=== PATIENT | female | born 1980 | race Caucasian/White ===

== ENCOUNTER 2017-12-20 11:01 | Inpatient (IN) | payer OTHER ==
--- NOTE | 2017-12-20 13:21 | ED ---
Chest Pain HPI - General Chief Complaint: Chest Pain Stated Complaint: chest pain, 20 weeks Time Seen by Provider: 12/20/17 13:02 Source: patient Mode of arrival: wheelchair Limitations: no limitations - History of Present Illness Initial Comments: 37 yoF 20 weeks presenting with chest left sided sharp nonradiating chest pain that began last night while at rest. Patient states it lasted for a few minutes and resolved when she held pressure over the area. Today the pain returned while she was at work and was accompanied by shortness of breath. Patient states she called her OBGYN, Dr. Briggs, who instructed her to come to the ED. Patient denies any personal or family history of DVT/PE, recent leg swelling or pain, or personal/family history of ND. Denies any trauma , cough, or shortness of breath. Patient's complaining of scant vaginal bleeding today. She states that her and her had sexual intercourse yesterday. Nicolas any abdominal pain. - Related Data Home Medications Medication Instructions Recorded Confirmed Pantoprazole Sodium [Protonix] 80 mg PO DAILY 12/20/17 12/20/17 Pas-Nrwf-Htxrc Acid 1 cap PO DAILY 12/20/17 12/20/17 [-U Capsule (formulary)] Allergies Allergy/AdvReac Type Severity Reaction Status Date / Time aspirin Allergy Unknown Verified 12/20/17 13:47 Review of Systems ROS Statement: Those systems with pertinent positive or pertinent negative responses have been documented in the HPI. Review of Systems Constitutional: Denies fever, chills Eyes: Denies change in vision, Denies pain Ears, nose, mouth, throat: Denies headaches, Denies sore throat Cardiovascular: Admits to chest pain. Denies palpitations Respiratory: Admits to shortness of breath, Denies cough Gastrointestinal: Denies abdominal pain. Denies nausea, vomiting, diarrhea. Genitourinary: Denies hematuria, Denies infections. Scant vaginal bleeding Musculoskeletal: Denies pain, Denies swelling Integumentary: Denies rash Neurological: Denies headache, focal weakness, focal numbness Psychiatric: Denies anxiety, Denies depression Hematologic/Lymphatic: Denies easy bleeding or bruising ROS Other: All systems not noted in ROS Statement are negative. EKG Findings - EKG Comments: EKG Findings:: EKG shows normal sinus rhythm at a rate of 96 bpm. No S1, Q3, T3 seen. Past Medical History Past Medical History: No Reported History History of Any Multi-Drug Resistant Organisms: None Reported Past Surgical History: Section, Tonsillectomy Past Psychological History: Depression Smoking Status: Current every day smoker Past Alcohol Use History: None Reported Past Drug Use History: None Reported General Exam - General Exam Comments Initial Comments: General: Awake, alert, No acute Distress HENT: Normocephalic. Atraumatic Eyes: PERRL. EOMI. No scleral icterus. No injected conjunctiva Neck: Full ROM Chest/Lungs: Clear to auscultation bilaterally. No wheezing, rhonchi, or rales Cardiac: Regular rate, rhythm. No murmurs or rubs Abdomen/GI: [Soft, nontender, nondistended. No rebound, guarding, or rigidity. Musculoskeletal: Full ROM Skin: Warm, dry, intact Neurologic: A/Ox3, no weakness, no sensory deficit, no abdnormal gait, no coordination deficit Limitations: no limitations Course Vital Signs 12/20/17 12/20/17 12/20/17 11:04 13:24 16:07 Temperature 97.6 F Pulse Rate 96 85 89 Respiratory 18 16 16 Rate Blood Pressure 142/64 123/68 117/53 O2 Sat by Pulse 98 99 97 Oximetry 12/20/17 12/20/17 12/20/17 18:45 19:13 19:26 Temperature Pulse Rate 105 H 97 Respiratory 16 18 18 Rate Blood Pressure 153/77 137/67 O2 Sat by Pulse 99 99 Oximetry Chest Pain MDM - MDM 37 yoF female presenting with chest pain and shortness of breath that began last night. Initial exam the patient is awake, alert, no acute distress. Patient is mildly hypertensive. EKG shows normal sinus rhythm. Patient is not hypoxic. [address] Martins who recommends CTP. 1552 Patient's US was negative. Her CTPE was nondiagostic. Discussed with Dr. Martins who recommends a d-dimer. If that is elevated he recommends admission for our suspicion is high. Discussed with patient and who are agreeable to plan. Patient's dimer was elevated. Spoke with Dr. Ortiz who was agreeable to admission with consults to Dr. Martins and Dr. Juarez. He would also like BLE duplex orders placed. Patient is currently stable for transfer to the floor. Disposition Clinical Impression: Chest pain, Pulmonary embolism Disposition: ADMITTED IP TO THIS HOSP Referrals: None,Stated [REFERRING] - 1-2 days Decision to Admit Reason: Admit from EC
[2017-12-20 13:42] LABS: Basophils % (A) 0 %; Eosinophils # (A) 0.3 k/uL (0-0.7); Eosinophils % (A) 3 %; HCT 40.1 % (34.0-46.0); HGB 12.9 gm/dL (11.4-16.0); Lymphocytes # (A) 1.7 k/uL (1.0-4.8); Lymphocytes % (A) 19 %; MCH 27.4 pg (25.0-35.0); MCHC 32.3 g/dL (31.0-37.0); Mean Platelet Volume 8.2; Monocytes # (A) 0.5 k/uL (0-1.0); Monocytes % (A) 5 %; Neutrophils # (A) 6.2 k/uL (1.3-7.7); Neutrophils % (A) 71 %; Platelet Count 147 k/uL (150-450); RBC 4.72 m/uL (3.80-5.40); RDW 14.5 % (11.5-15.5); WBC 8.8 k/uL (3.8-10.6)
[2017-12-20 13:43] LABS: Appearance,Urine Clear (Clear); Bilirubin,Urine Negative (Negative); Blood,Urine Negative (Negative); Color,Urine Yellow; Glucose,Urine (UA) Negative (Negative); Ketones,Urine 1+ (Negative); Leukocyte Esterase,Urine Negative (Negative); Nitrite,Urine Negative (Negative); PH, Urine 5.5 (5.0-8.0); Protein,Urine Negative (Negative); Specific Gravity,Urine 1.021 (1.001-1.035); Urobilinogen,Urine <2.0 mg/dL (<2.0)
--- NOTE | 2017-12-20 13:57 | XR ---
EXAMINATION TYPE: XR chest 2V DATE OF EXAM: 12/20/2017 COMPARISON: NONE HISTORY: Chest pain for one day. TECHNIQUE: Frontal and lateral views of the chest are obtained. FINDINGS: There is no focal air space opacity, pleural effusion, or pneumothorax seen. The cardiac silhouette size is within normal limits. The osseous structures are intact. IMPRESSION: No acute cardiopulmonary process.
[2017-12-20 14:01] LABS: ALT 25 U/L (9-52); AST 18 U/L (14-36); Albumin 3.5 g/dL (3.5-5.0); Alkaline Phosphatase 48 U/L (38-126); Anion Gap 9 mmol/L; Bilirubin, Delta 0.2 mg/dL (0.0-0.2); Blood Urea Nitrogen 10 mg/dL (7-17); Carbon Dioxide 20 mmol/L (22-30); Chloride 109 mmol/L (98-107); Glucose 62 mg/dL (74-99); Sodium 138 mmol/L (137-145); Total Bilirubin 0.2 mg/dL (0.2-1.3); Total Protein 6.4 g/dL (6.3-8.2)
[2017-12-20] MEDS ORDERED: RX INFO: IV CONTRAST WAS GIVEN 1 EACH MISC MISCELLANE PRN (14:04)
--- NOTE | 2017-12-20 15:10 | US ---
EXAMINATION TYPE: US OB >= 14 wk fetus DATE OF EXAM: 12/20/2017 COMPARISON: None CLINICAL HISTORY: vaginal bleeding Chest pain, diabetes TECHNIQUE: Transabdominal (TA) GESTATIONAL AGE / DATING Physician Established: (20 weeks/5 days) EDC: 05/04/2018 Dates by Current Scan: (20 weeks/4 days) EDC: 05/05/2018 SURVEY IUP: Single PLACENTA: Anterior PREVIA: No Previa GIN: 16.8 cm Normal CERVICAL LENGTH (transabdominal: norm > 3.0cm): 3.5 cm BIOMETRY PRESENTATION: Breech LIE: Longitudinal BPD: 5.1 cm 21 weeks / 3 days HC: 18.3 cm 20 weeks / 5 days AC: 15.8 cm 20 weeks / 6 days FL: 3.3 cm 20 weeks / 2 days ESTIMATED WEIGHT IN GRAMS: 368.4 grams ESTIMATED WEIGHT IN LBS/OZ: 0 lbs. 13 oz. WEIGHT PERCENTAGE BASED ON ESTABLISHED DATES: 41.7% HC/AC: 1.2 Normal FL/AC: 20.8 HEART RATE: 136 bpm RHYTHM: Normal Signal live intrauterine gestation is present. A breech presentation to fetus is currently seen. Ther e is no ultrasound evidence for placenta previa. Amniotic fluid index is upper limits of normal. No c ervical thinning is seen. biometry measurements are congruent and felt within normal limits. IMPRESSION: As above, no ultrasound evidence for complication.
--- NOTE | 2017-12-20 15:25 | CT ---
EXAMINATION TYPE: CT chest angio for PE DATE OF EXAM: 12/20/2017 COMPARISON: NONE HISTORY: RIGHT SIDE CHEST PAIN AND SOB CT DLP: 378.2 mGycm Automated exposure control for dose reduction was used. CONTRAST: CT Chest for pulmonary embolism performed with with IV Contrast, patient injected with 77 mL of Isovu e 370. FINDINGS: LUNGS: Calcified granuloma in the right upper lobe. Additional 5 mm nodule posterior right lung pleur al-based. Subsegmental groundglass changes post fairly likely related to dependent atelectasis. Right upper lobe 2 mm pleural-based nodule axial image 81. MEDIASTINUM: There is unsatisfactory and suboptimal enhancement pulmonary arteries. No obvious centra l pulmonary embolus. Remaining portion exam nondiagnostic. Aorta of normal caliber. Motion artifact l imits assessment of the aortic root. A trace of pericardial fluid noted. OTHER: There is adrenal thickening on the left correlate for adrenal hyperplasia. Spleen is heteroge neous in appearance likely related to the phase of imaging. IMPRESSION: Nondiagnostic assessment for pulmonary embolism. Grossly no sizable embolism within the right or left main pulmonary artery. Multiple less than 5 mm pulmonary nodules. One of which appears calcified. Short-term follow-up 6 mon th follow-up CT scan recommended to confirm stability. Subsegmental changes involving the posterior lung bases may been the basis of atelectasis eli hinojosa.
[2017-12-20] MEDS ORDERED: HEPARIN SODIUM,PORCINE 10,000 UNIT/ML 1 ML VIAL IV ONE (16:53)
[2017-12-20] MEDS ORDERED: NALOXONE 0.4 MG/ML 1 ML VIAL IV PRN (16:59)
[2017-12-20] MEDS: HEPARIN SOD,PORK IN 0.45% NACL 25,000 UNIT in 0.45% NACL 1 500ML.BAG IV SCH (17:43)
[2017-12-20 17:59] LABS: Partial Thromboplastin Time 23.7 sec (22.0-30.0); Prothrombin Time 9.6 sec (9.0-12.0)
--- NOTE | 2017-12-20 18:38 | US ---
EXAMINATION TYPE: US venous doppler duplex LE BI DATE OF EXAM: 12/20/2017 6:27 PM COMPARISON: NONE CLINICAL HISTORY: Pain. SIDE PERFORMED: Bilateral TECHNIQUE: The lower extremity deep venous system is examined utilizing real time linear array sonog elías with graded compression, doppler sonography and color-flow sonography. VESSELS IMAGED: External Iliac Vein (EIV) Common Femoral Vein Deep Femoral Vein Greater Saphenous Vein * Femoral Vein Popliteal Vein Small Saphenous Vein *not seen on left Proximal Calf Veins (* superficial vessels) Right Leg: Negative for DVT Left Leg: Negative for DVT IMPRESSION: Negative bilateral leg duplex venous sonogram.
[2017-12-20] MEDS ORDERED: ACETAMINOPHEN TAB 500 MG TAB PO STA (19:28)
[2017-12-20] MEDS ORDERED: NICOTINE 7MG/24HR PATCH TRANSDERM SCH (23:00)
--- NOTE | 2017-12-21 00:02 | HP ---
HISTORY AND PHYSICAL PRESENTING COMPLAINT: Right chest pain. HISTORY OF PRESENTING COMPLAINT: This is a 37-year-old patient who follows with Dr. Price. The patient is 21 weeks with the her third child. Started off with the right chest pain, which is sharp in nature, maybe slightly worse if she takes a deep breath. There is no swelling in the legs. The patient is rather active. 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 The patient is not really short of breath as much as the pain. The patient is started on IV heparin in the ER. She did have a CT scan of the chest that was not conclusive. The patient's food broker is Dr. Levine. No prior history of blood clots. REVIEW OF SYSTEMS: CONSTITUTIONAL: None. HEENT: Slight runny nose. RESPIRATORY: As above. Slight cough. CARDIOVASCULAR: Left precordial pain. GASTROINTESTINAL: Some heartburn. GENITOURINARY: None. MUSCULOSKELETAL: Some reproducible pain on the right chest wall. DERMATOLOGICAL: None. HEMATOLOGIC: None. LYMPHATIC: None. PSYCHIATRY: None. NEUROLOGICAL: None. PAST MEDICAL HISTORY: GERD, sleep apnea, gestational diabetes, left ovarian cyst. PAST SURGICAL HISTORY: , tonsillectomy. SOCIAL HISTORY: The patient has been smoking for about 21 years normally a pack and half a day. When she found out about her she is down to 5 cigarettes a day. Denies alcohol or recreational drugs. The patient works at a recycling plant. with 2 children at home. FAMILY HISTORY: COPD, hyperlipidemia, osteoporosis. HOME MEDICATIONS: capsule 1 capsule daily and Protonix 80 mg p.o. daily. ALLERGIES: ASPIRIN. PHYSICAL EXAMINATION: VITAL SIGNS ON PRESENTATION: Temperature 97.6, pulse 96, respiratory 18, blood pressure 142/64, pulse ox 98% on room. GENERAL APPEARANCE: Well-built, BMI 32.3. Lying in bed, tired appearing. EYES: Pupils equal. Conjunctivae normal. HEENT: External appearance of nose and ears normal. Oral cavity normal. NECK: JVD not raised. Mass not palpable. RESPIRATORY: Effort normal. LUNGS: Fair air entry. CARDIOVASCULAR: First and second sounds normal. No edema. ABDOMEN: Distended. Uterus is palpable. Liver and spleen not palpable. LYMPHATIC: No lymph node palpable in neck or axillae. PSYCHIATRY: Alert and oriented x3. Mood and affect slightly anxious-appearing. NEUROLOGICAL: Pupils equal. Cranial nerves grossly intact. Power and sensation grossly intact. LOWER EXTREMITIES: No swelling noted in the lower extremities. Equal on both sides. MUSCULOSKELETAL: The patient has got reproducible pain on the right chest wall at the costochondral junction. INVESTIGATIONS: White count 8.8, hemoglobin 12.9, potassium 4, BUN 10, creatinine 0.44. D-dimer 0.6. ultrasound single intrauterine gestation with breech presentation. Chest CTA no obvious PE. Venous Doppler both lower extremities negative. ASSESSMENT: 1. Acute right-sided pleuritic chest pain of less than one day duration, reproducible pain at the right costochondral junction. Other differential could be viral pleurisy, pleural effusion of course cannot be ruled out. The patient is put on IV heparin. Pulmonary was consulted. Dopplers of the lower extremities is negative. 2. Chronic nicotine dependence. The patient is a cigarette smoker. 3. IV heparin monitoring. PLAN: We will keep the patient on IV heparin, get a pulmonary opinion. The patient will get a nicotine patch. Consultation also with Dr. Levine from obstetrics was done. CBC will be repeated. Smoking cessation counseling was done with the patient. I told her that this will affect her . We will give a nicotine patch. More than 3 minutes was spent on smoking cessation counseling. MMODL / IJN: [id number] /
[2017-12-21 07:09] LABS: Basophils % (A) 1 %; Eosinophils # (A) 0.2 k/uL (0-0.7); Eosinophils % (A) 3 %; HCT 37.3 % (34.0-46.0); HGB 12.6 gm/dL (11.4-16.0); Lymphocytes # (A) 1.5 k/uL (1.0-4.8); Lymphocytes % (A) 23 %; MCH 28.6 pg (25.0-35.0); MCHC 33.9 g/dL (31.0-37.0); MCV 84.3 fL (80.0-100.0); Mean Platelet Volume 7.9; Monocytes # (A) 0.4 k/uL (0-1.0); Monocytes % (A) 6 %; Neutrophils # (A) 4.3 k/uL (1.3-7.7); Neutrophils % (A) 66 %; Platelet Count 151 k/uL (150-450); RBC 4.42 m/uL (3.80-5.40); RDW 14.3 % (11.5-15.5); WBC 6.6 k/uL (3.8-10.6)
[2017-12-21 07:47] LABS: Anion Gap 9 mmol/L; Blood Urea Nitrogen 8 mg/dL (7-17); Calcium 8.5 mg/dL (8.4-10.2); Carbon Dioxide 21 mmol/L (22-30); Chloride 108 mmol/L (98-107); Glucose 82 mg/dL (74-99); Potassium 3.9 mmol/L (3.5-5.1); Sodium 138 mmol/L (137-145)
--- NOTE | 2017-12-21 08:53 | P.OBCN ---
History of Present Illness Consult date: 12/21/17 Requesting physician: Jude Ortiz Reason for consult: early problem Chief complaint: February at 20 weeks: Suspected pulmonary embolus History of present illness: Gerri is a 37-year-old female who is currently 20 weeks gestation. She reports that yesterday she began having sharp stabbing pain in her anterior chest after the initial presentation it began to feel more like something is sitting on her chest. It was only on the right side at approximately the fifth or sixth rib level and was relatively contained to that area. She was evaluated in the emergency room and I did discuss care with Dr. Donovan for recommendations on diagnosis of PE. At that time but this discussion was held and decision to use spiral CT was made to rule out a PE. Symptomatically she was not short of breath and did not have any significant dyspnea. She was pulse oxing well and was not tachycardic. EKG was also normal. The spiral CT however was nondiagnostic. Furthermore after discussion with your doctor a d- dimer was done which returned at 0.6. This value in absolute terms is slightly elevated, however, with particularly in the second trimester we would normally expect some increase in the d-dimer. 0.6 would be well within what I would normally consider to be normal by for a d-dimer in a woman. Gerri and I had a very long discussion on what a pulmonary embolism is how it is formed and widely the risks of PE are increased in . We further discuss her blood sugar issues as she is either a type II diabetic or she has early onset gestational diabetes for which insulin was initiated but she has not started as her blood sugars at home have been normal. She has been seen by and evaluated by maternal- medicine and ultimately if the decision is made that we think this is a pulmonary and was more cannot completely rule it out we would have MFM give further opinions on long-term care in the situation. I fully agree and support the decision to start her on IV heparin based on symptomatology, however it would be beneficial to her to verify the diagnosis if at all possible. Certainly a VQ scan might give a better impression should it be required. Realistically, a VQ scan is going to be slightly more effective at determining a PE in , this obviously assume she is able to take deep breaths and give full diaphragmatic support her breathing slit the VQ scan can be done. In talking to her I think that that certainly is a good option rather than repeating the spiral CT. Would certainly defer any decisions on this to pulmonology, ordinarily a spiral CT has been better in my experience due to the decrease in a woman's ability to take deep breaths, however with Gerri only being 20 weeks gestation she should have limited problems with that process. She is a smoker and has been advised to discontinue tobacco on several occasions. However, a nicotine patches contraindicated in . We will also initiate Accu-Cheks every before meals and at bedtime. On physical exam vital signs are stable and afebrile. Heart regular lungs are essentially clear and abdomen is soft with gravid uterus noted. Extremities are without pain and do not show any signs of swelling or any evidence of DVT. A Doppler of the lower extremities was also done and was negative. Assessment intrauterine 20 weeks with possible PE. Plan await pulmonology recommendations and your medical management with regard to the PE. Consideration for VQ scan for repeat spiral CT. Should PE continued to be impossible to rule out, would recommend changing to Lovenox or other daily anticoagulant with plan to switch to subcu heparin at approximately 35-36 weeks so that she can have a section that will be planned for 39 weeks. All other questions were answered for Gerri at this time and I will plan to come back and see her later today once other evaluations and recommendations are made. Past Medical History Past Medical History: GERD/Reflux, Sleep Apnea/CPAP/BIPAP Additional Past Medical History / Comment(s): GESTATIONAL DIABETES WITH ALL 3 PREGNANCIES(CURRENTLY 20 WEEKS ), CONSTIPATION, PAST LT OVARIAN CYST History of Any Multi-Drug Resistant Organisms: None Reported Past Surgical History: Section, Tonsillectomy Additional Past Surgical History / Comment(s): X2 C-SECTIONS Past Anesthesia/Blood Transfusion Reactions: No Reported Reaction Additional Past Anesthesia/Blood Transfusion Reaction / Comm: AGE 16 HAD BLOOD TRANSFUSION D/T BLEEDING DURING TONSILECTOMY Smoking Status: Current every day smoker - Past Family History Father History Unknown: Yes Mother Family Medical History: COPD, Hyperlipidemia Additional Family Medical History / Comment(s): ENPHYSEMA, OSTEOPOROSIS Medications and Allergies Home Medications Medication Instructions Recorded Confirmed Type Pantoprazole Sodium [Protonix] 80 mg PO DAILY 12/20/17 12/20/17 History Gup-Dffk-Uqbig Acid 1 cap PO DAILY 12/20/17 12/20/17 History [-U Capsule (formulary)] Allergies Allergy/AdvReac Type Severity Reaction Status Date / Time aspirin Allergy Unknown Verified 12/20/17 13:47 Exam Osteopathic Statement: *. No significant issues noted on an osteopathic structural exam other than those noted in the History and Physical/Consult. - Vital Signs Vital signs: Vital Signs Temp Pulse Pulse Resp BP BP Pulse Ox 12/21/17 04:00 97.0 F L 88 14 103/51 96 12/21/17 00:43 96.9 F L 88 16 123/76 98 12/21/17 00:00 98.2 F 75 18 117/57 96 12/20/17 22:31 78 18 114/60 98 12/20/17 20:58 96 18 109/73 98 12/20/17 19:26 97 18 137/67 99 12/20/17 19:13 18 12/20/17 18:45 105 H 16 153/77 99 12/20/17 16:07 89 16 117/53 97 12/20/17 13:24 85 16 123/68 99 12/20/17 11:04 97.6 F 96 18 142/64 98 Intake and Output 12/20/17 12/21/17 12/21/17 22:59 06:59 14:59 Intake Total 161.031 2841 Output Total 800 Balance -533.891 5838 Intake: Intake, IV Titration 267.359 Amount Heparin Sod,Pork in 0.45% 267.359 NaCl 25,000 unit In 0.45 % NaCl 1 500ml.bag @ 18 UNITS/KG/HR 33.63 mls/hr IV .[id number] [facility] Rx#: [id number] Oral 1200 Output: Urine 800 Other: # Voids 1 Weight 93.1 kg Results Result Diagrams: 12/21/17 06:20 12/21/17 06:20 Abnormal Lab Results - Last 24 Hours (Table) 12/20/17 12/20/17 12/20/17 Range/Units 13:31 13:31 13:31 Plt Count 147 L (150-450) k/uL APTT (22.0-30.0) sec D-Dimer (<0.60) mg/L FEU Chloride 109 H (98-107) mmol/L Carbon Dioxide 20 L (22-30) mmol/L Creatinine 0.44 L (0.52-1.04) mg/dL Glucose 62 L (74-99) mg/dL Urine Ketones 1+ H (Negative) 12/20/17 12/21/17 12/21/17 Range/Units 16:00 00:35 06:20 Plt Count (150-450) k/uL APTT 33.9 H (22.0-30.0) sec D-Dimer 0.60 H (<0.60) mg/L FEU Chloride 108 H (98-107) mmol/L Carbon Dioxide 21 L (22-30) mmol/L Creatinine 0.46 L (0.52-1.04) mg/dL Glucose (74-99) mg/dL Urine Ketones (Negative) 12/21/17 Range/Units 06:20 Plt Count (150-450) k/uL APTT 43.4 H (22.0-30.0) sec D-Dimer (<0.60) mg/L FEU Chloride (98-107) mmol/L Carbon Dioxide (22-30) mmol/L Creatinine (0.52-1.04) mg/dL Glucose (74-99) mg/dL Urine Ketones (Negative)
[2017-12-21] MEDS: HEPARIN SOD,PORK IN 0.45% NACL 25,000 UNIT in 0.45% NACL 1 500ML.BAG IV SCH ×2 (09:07→17:26)
[2017-12-21] MEDS: HEPARIN SODIUM,PORCINE 5,000 UNIT/ML 1 ML VIAL IV PRN (09:08)
[2017-12-21] MEDS: PRENATAL VIT-IRON-FOLIC ACID 1 EACH CAP PO SCH (09:09)
[2017-12-21] MEDS: PANTOPRAZOLE 40 MG TABLET PO SCH (09:09)
[2017-12-21 11:50] LABS: Glucose,Whole Blood 79 mg/dL (75-99)
--- NOTE | 2017-12-21 12:34 | P.CNPUL ---
History of Present Illness Consult date: 12/21/17 Reason for consult: pulmonary embolism History of present illness: A 37-year-old here patient was currently in her 20th week of gestation who was admitted to the hospital because of some nonspecific pain across her right anterior chest area that was thought to be initially to be pleuritic in nature. She did claim that the pain was getting worse with breathing however it seems that the pain is also reproducible with touch or movement. For that reason and for the concern of pulmonary embolism the patient was admitted to the hospital and the patient was started on IV heparin. As part of her workup, a d-dimer was done that came back at 0.6 which is low suspicion a setting, .throat approximately was negative, CT angios the chest showed a suboptimal contrast it for the most part the main pulmonary arteries were free of any filling defects. The patient's pain is subsided significantly. She is feeling better. No hypoxemia. No respiratory distress. No personal history of DVT. She has a grandmother who has had clotting in the past. She has had 3 previous pregnancies and these were all non-complicated. She is hemodynamically stable. She has absolutely no other new complaints for now. She is a smoker. She is utilizing nicotine patches. She is also developing gestational diabetes and she is under the care of Dr. Briggs from [facility]. She has history of obstructive sleep apnea. Review of Systems Constitutional: Denies chills, Denies fever Eyes: denies blurred vision, denies bulging eye, denies decreased vision Ears: deny: decreased hearing, ear discharge, earache Ears, nose, mouth and throat: Denies headache, Denies sore throat Cardiovascular: Reports chest pain Respiratory: Denies cough Gastrointestinal: Denies abdominal pain, Denies diarrhea, Denies nausea, Denies vomiting Genitourinary: Denies dysuria, Denies hematuria Menstruation: Reports as per HPI Musculoskeletal: Denies myalgias Musculoskeletal: absent: ankle pain, ankle stiffness, ankle swelling Integumentary: Denies pruritus, Denies rash Neurological: Denies numbness, Denies weakness Psychiatric: Reports as per HPI Endocrine: Denies fatigue, Denies weight change Past Medical History Past Medical History: GERD/Reflux, Sleep Apnea/CPAP/BIPAP Additional Past Medical History / Comment(s): GESTATIONAL DIABETES WITH ALL 3 PREGNANCIES(CURRENTLY 20 WEEKS ), CONSTIPATION, PAST LT OVARIAN CYST History of Any Multi-Drug Resistant Organisms: None Reported Past Surgical History: Section, Tonsillectomy Additional Past Surgical History / Comment(s): X2 C-SECTIONS Past Anesthesia/Blood Transfusion Reactions: No Reported Reaction Additional Past Anesthesia/Blood Transfusion Reaction / Comment(s): AGE 16 HAD BLOOD TRANSFUSION D/T BLEEDING DURING TONSILECTOMY Smoking Status: Current every day smoker - Past Family History Father History Unknown: Yes Mother Family Medical History: COPD, Hyperlipidemia Additional Family Medical History / Comment(s): ENPHYSEMA, OSTEOPOROSIS Medications and Allergies Home Medications Medication Instructions Recorded Confirmed Type Pantoprazole Sodium [Protonix] 80 mg PO DAILY 12/20/17 12/20/17 History Lkj-Msqw-Rmcsj Acid 1 cap PO DAILY 12/20/17 12/20/17 History [-U Capsule (formulary)] Allergies Allergy/AdvReac Type Severity Reaction Status Date / Time aspirin Allergy Unknown Verified 12/20/17 13:47 Physical Exam Vitals: Vital Signs Temp Pulse Pulse Resp BP BP Pulse Ox 12/21/17 11:53 98.1 F 85 18 125/64 95 12/21/17 09:15 97.9 F 86 18 115/54 97 12/21/17 04:00 97.0 F L 88 14 103/51 96 12/21/17 00:43 96.9 F L 88 16 123/76 98 12/21/17 00:00 98.2 F 75 18 117/57 96 12/20/17 22:31 78 18 114/60 98 12/20/17 20:58 96 18 109/73 98 12/20/17 19:26 97 18 137/67 99 12/20/17 19:13 18 12/20/17 18:45 105 H 16 153/77 99 12/20/17 16:07 89 16 117/53 97 12/20/17 13:24 85 16 123/68 99 Intake and Output 12/20/17 12/21/17 12/21/17 22:59 06:59 14:59 Intake Total 276.988 3892.641 Output Total 800 Balance -148.112 6531.641 Intake: Intake, IV Titration 267.359 232.641 Amount Heparin Sod,Pork in 0.45% 267.359 232.641 NaCl 25,000 unit In 0.45 % NaCl 1 500ml.bag @ 18 UNITS/KG/HR 33.63 mls/hr IV .[id number] [facility] Rx#: [id number] Oral 1200 Output: Urine 800 Other: # Voids 1 Weight 93.1 kg The patient appeared well nourished and normally developed. Vital signs as documented. Head exam is unremarkable. No scleral icterus or corneal arcus noted. Neck is without jugular venous distension, thyromegaly, or carotid bruits. Carotid upstrokes are brisk bilaterally. Lungs are clear to auscultation and percussion. Cardiac exam reveals the PMI to be normally sized and situated. Rhythm is regular. First and second heart sounds normal. No murmurs, rubs or gallops. Abdominal exam reveals normal bowel sounds, no masses , no organomegaly and no aortic enlargement. Extremities are nonedematous and both femoral and pedal pulses are normal.Examination of the skin revealed no evidence of significant rashes, suspicious appearing nevi or other concerning lesions. Neurologic the patient is awake and alert and there is no focal neurological deficit. Psychiatric the patient has appropriate mood and affect Results - Laboratory Findings CBC and BMP: 12/21/17 06:20 12/21/17 06:20 PT/INR, D-dimer PT 9.6 sec (9.0-12.0) 12/20/17 16:08 INR 1.0 (<1.2) 12/20/17 16:08 D-Dimer 0.60 mg/L FEU (<0.60) H 12/20/17 16:00 Abnormal lab findings: Abnormal Labs 12/20/17 12/20/17 12/20/17 13:31 13:31 13:31 Plt Count 147 L APTT D-Dimer Chloride 109 H Carbon Dioxide 20 L Creatinine 0.44 L Glucose 62 L Urine Ketones 1+ H 12/20/17 12/21/17 12/21/17 16:00 00:35 06:20 Plt Count APTT 33.9 H D-Dimer 0.60 H Chloride 108 H Carbon Dioxide 21 L Creatinine 0.46 L Glucose Urine Ketones 12/21/17 06:20 Plt Count APTT 43.4 H D-Dimer Chloride Carbon Dioxide Creatinine Glucose Urine Ketones - Diagnostic Findings CT scan - chest: image reviewed Assessment and Plan Plan: Assessment 1 acute right-sided chest pain, pulmonary embolism is doubtful yet is not excluded especially with her suboptimal CT angios the chest. The patient is . Other workup which included a d-dimer and Doppler extremity do not support pulmonary embolism. Clinical suspicion is low. 2 at 20th week of gestation 3 smoker 4 obstructive sleep apnea Plan Had a lengthy discussion with the patient. The patient is still nervous about diagnosis of pulmonary embolism. We decided to repeat a CT angios the chest in the morning and if negative we'll stop the anticoagulation unless the patient go without any anticoagulants. He understands the risks of radiation to the fetus although low but still there. The patient is currently passed her first trimester. She carries a lower risk of getting radiation related complications from CT angios the chest. Nevertheless, this will be needed to establish and final diagnoses and to avoid committing this patient to unnecessary anticoagulation which bites of can be detrimental and complicated. We'll continue to follow.
[2017-12-21 14:30] LABS: Glucose,Whole Blood 149 mg/dL (75-99)
[2017-12-21] MEDS: INSULIN ASPART 100 UNIT/ML 1 ML 10 ML VIAL SQ SCH ×2 (14:51→20:35)
[2017-12-21 19:18] LABS: Glucose,Whole Blood 88 mg/dL (75-99)
[2017-12-21 19:38] LABS: Hemoglobin A1C 4.8 % (4.0-6.0)
--- NOTE | 2017-12-22 06:04 | PN ---
PROGRESS NOTE DATE OF SERVICE: 12/21/2017 PRESENTING COMPLAINT: Right chest pain. INTERVAL HISTORY: This patient presents with right chest pain, reproducible, but there was a question if this is a pulmonary embolism. The patient is [address] scan was not a very good study. The patient has been on IV heparin. The patient's right chest pain feels better today. There is no DVT. REVIEW OF SYSTEMS: Review of systems done for constitutional, cardiovascular, GI, pulmonary; relevant findings as above. MEDICATIONS: Current medications include IV. PHYSICAL EXAMINATION: On examination, temperature 97.9, pulse 86, respirations 18, blood pressure 115/54, pulse ox 97% on room air. GENERAL APPEARANCE: Sitting up, comfortable. EYES: Pupils equal. Conjunctivae normal. HENT: External appearances of nose and ears normal. Oral cavity normal. NECK: JVD not raised. Mass not palpable. RESPIRATORY: Effort normal. LUNGS: Fair entry. CARDIOVASCULAR: First and second sounds normal, no edema. ABDOMEN: Soft, nontender. Liver and spleen not palpable. PSYCHIATRY: Alert and oriented x3. Mood and affect normal. Minimal right costochondral junction point tenderness. INVESTIGATIONS: White count 6.6, potassium 3.9. ASSESSMENT: 1. Acute right pleuritic chest pain, probably costochondritis. Pulmonary embolism appears to be extremely unlikely given negative Dopplers. 2. Chronic nicotine dependence. 3. IV heparin monitoring. PLAN: Did discuss with Dr. Rae, even its his opinion too that PE is extremely unlikely. Choice was discussed with the patient that either we do a repeat CT scan to be more affirmative which will of course lead to a little bit more radiation. At the same time, if we just subject the patient to anticoagulation there is of course the possible side effects and complications of anticoagulation. At this point, patient wants and chosen to proceed with the CT scan which will be done tomorrow and depending on that, we will proceed from there. MMODL / IJN: [id number] /
[2017-12-22] MEDS: HEPARIN SOD,PORK IN 0.45% NACL 25,000 UNIT in 0.45% NACL 1 500ML.BAG IV SCH (06:37)
[2017-12-22 06:44] LABS: Glucose,Whole Blood 101 mg/dL (75-99)
[2017-12-22 06:44] LABS: Glucose,Whole Blood 100 mg/dL (75-99)
[2017-12-22 07:58] LABS: Basophils % (A) 0 %; Eosinophils # (A) 0.3 k/uL (0-0.7); Eosinophils % (A) 3 %; HCT 38.7 % (34.0-46.0); HGB 12.5 gm/dL (11.4-16.0); Lymphocytes # (A) 1.8 k/uL (1.0-4.8); Lymphocytes % (A) 22 %; MCH 27.6 pg (25.0-35.0); MCHC 32.2 g/dL (31.0-37.0); MCV 85.7 fL (80.0-100.0); Mean Platelet Volume 8.5; Monocytes # (A) 0.4 k/uL (0-1.0); Monocytes % (A) 6 %; Neutrophils # (A) 5.3 k/uL (1.3-7.7); Neutrophils % (A) 67 %; Platelet Count 138 k/uL (150-450); RBC 4.52 m/uL (3.80-5.40); RDW 14.4 % (11.5-15.5)
[2017-12-22] MEDS ORDERED: RX INFO: IV CONTRAST WAS GIVEN 1 EACH MISC MISCELLANE PRN (07:59)
[2017-12-22 08:52] VITALS: BP 108/58; PULSE 75; RESP 18; TEMP 98.4
--- NOTE | 2017-12-22 09:15 | CT ---
EXAMINATION TYPE: CT angio chest DATE OF EXAM: 12/22/2017 COMPARISON: 12/20/2017 HISTORY: PE CT DLP: 471 mGycm CONTRAST: CT chest with contrast and 3D reconstruction with MIP imaging is performed with IV Contrast, patient injected with 100 mL of Isovue 370. Contrast-enhanced CT of the chest was performed through the course of the pulmonary arteries with krishan g and mediastinal window settings submitted. 3D reconstruction with MIP imaging was also performed. PULMONARY ARTERIES: suboptimal enhancement pulmonary arteries. No obvious central pulmonary embolus. Remaining portion exam nondiagnostic. LUNGS: The lungs are clear and free of infiltrate. Mild basilar dependent atelectasis. Small scattere d pulmonary nodules again noted which may reflect granulomatous disease. Follow-up study in 6 months advised. No pleural effusion. MEDIASTINUM: Thoracic aorta is of normal caliber,however, evaluation is limited given timing of the contrast bolus. If there is concern for thoracic aortic pathology consider SHARLA. Correlate clinicall y . The heart is not enlarged. No evidence for mediastinal mass. No mediastinal lymph nodes greater than 1cm. HILAR STRUCTURES: No evidence for mass. No hilar lymph nodes greater than 1 cm. UPPER ABDOMEN: No significant abnormality is seen. IMPRESSION: 1. Suboptimal assessment for pulmonary embolism given timing of the contrast bolus. No large central embolus is identified. Consider VQ scan if felt to be clinically indicated. 2. Mild basilar dependent atelectasis and atelectasis within the region of the lingula.
[2017-12-22] MEDS: PRENATAL VIT-IRON-FOLIC ACID 1 EACH CAP PO SCH (09:21)
[2017-12-22] MEDS: PANTOPRAZOLE 40 MG TABLET PO SCH (09:21)
[2017-12-22 09:57] LABS: Glucose,Whole Blood 207 mg/dL (75-99)
[2017-12-22] MEDS: INSULIN ASPART 100 UNIT/ML 1 ML 10 ML VIAL SQ SCH (10:16)
[2017-12-22] MEDS: HEPARIN SODIUM,PORCINE 5,000 UNIT/ML 1 ML VIAL IV PRN (10:58)
--- NOTE | 2017-12-22 15:44 | P.PN ---
Subjective Progress Note Date: 12/22/17 Principal diagnosis: Acute right-sided chest pain, pulmonary embolism is doubtful, but is not excluded with to suboptimal CT angios of the chest. A 37-year-old here patient was currently in her 20th week of gestation who was admitted to the hospital because of some nonspecific pain across her right anterior chest area that was thought to be initially to be pleuritic in nature. She did claim that the pain was getting worse with breathing however it seems that the pain is also reproducible with touch or movement. For that reason and for the concern of pulmonary embolism the patient was admitted to the hospital and the patient was started on IV heparin. As part of her workup, a d-dimer was done that came back at 0.6 which is low suspicion a setting, .throat approximately was negative, CT angios the chest showed a suboptimal contrast it for the most part the main pulmonary arteries were free of any filling defects. The patient's pain is subsided significantly. She is feeling better. No hypoxemia. No respiratory distress. No personal history of DVT. She has a grandmother who has had clotting in the past. She has had 3 previous pregnancies and these were all non-complicated. She is hemodynamically stable. She has absolutely no other new complaints for now. She is a smoker. She is utilizing nicotine patches. She is also developing gestational diabetes and she is under the care of Dr. Briggs from [facility]. She has history of obstructive sleep apnea. 12/14/2017 patient had a repeat CTA chest, was again suboptimal assessment for pulmonary embolism given the timing of the contrast bolus. No large central embolus was identified. There was mild basilar dependent atelectasis and atelectasis within the region of the lingula. Patient denies dyspnea, chest pain has resolved. Maintaining good oxygenation on room air, her pulse ox is 97 %. Vital signs are stable, she is afebrile. Lungs clear to auscultation. Venous Dopplers were negative for DVTs. Heparin drip will be discontinued, patient can be discharged home today, no need for anticoagulation. Objective - Vital Signs Vital signs: Vital Signs Temp 98.4 F 12/22/17 07:00 Pulse 75 12/22/17 08:00 Resp 18 12/22/17 08:00 BP 108/58 12/22/17 07:00 Pulse Ox 97 12/22/17 07:00 Intake & Output 12/21/17 12/22/17 12/22/17 18:59 06:59 18:59 Intake Total 2285.644 1890 983.885 Output Total 700 Balance 6285.596 1803 983.885 Weight 94 kg Intake: Intake, IV Titration 605.644 500 183.885 Amount Heparin Sod,Pork in 0.45% 605.644 500 183.885 NaCl 25,000 unit In 0.45 % NaCl 1 500ml.bag @ 18 UNITS/KG/HR 33.63 mls/hr IV .[id number] [facility] Rx#: [id number] Oral 1680 1390 800 Output: Urine 700 Other: Voiding Method Toilet Toilet # Voids 2 6 # Bowel Movements 0 - Exam GENERAL EXAM: Alert, pleasant 37-year-old female comfortable in no apparent distress. HEAD: Normocephalic/atraumatic. EYES: Normal reaction of pupils, equal size. Conjunctiva pink, sclera white. NOSE: Clear with pink turbinates. THROAT: No erythema or exudates. NECK: No masses, no JVD, no thyroid enlargement, no adenopathy. CHEST: No chest wall deformity. Symmetrical expansion. LUNGS: Equal air entry with no crackles, wheeze, rhonchi or dullness. CVS: Regular rate and rhythm, normal S1 and S2, no gallops, no murmurs, no rubs ABDOMEN: Soft, nontender. No hepatosplenomegaly, normal bowel sounds, no guarding or rigidity. EXTREMITIES: No clubbing, no edema, no cyanosis, 2+ pulses and upper and lower extremities. MUSCULOSKELETAL: Muscle strength and tone normal. SPINE: No scoliosis or deformity SKIN: No rashes CENTRAL NERVOUS SYSTEM: Alert and oriented -3. No focal deficits, tone is normal in all 4 extremities. PSYCHIATRIC: Alert and oriented -3. Appropriate affect. Intact judgment and insight. - Labs CBC & Chem 7: 12/22/17 07:30 12/21/17 06:20 Labs: Abnormal Lab Results - Last 24 Hours (Table) 12/21/17 12/22/17 12/22/17 Range/Units 15:15 06:41 06:43 Plt Count (150-450) k/uL APTT 47.2 H (22.0-30.0) sec POC Glucose (mg/dL) 100 H 101 H (75-99) mg/dL 12/22/17 12/22/17 12/22/17 Range/Units 07:30 07:30 09:53 Plt Count 138 L (150-450) k/uL APTT 45.8 H (22.0-30.0) sec POC Glucose (mg/dL) 207 H (75-99) mg/dL Assessment and Plan Plan: Assessment: 1 acute right-sided chest pain, pulmonary embolism is doubtful yet is not excluded especially with her suboptimal CT angios the chest. The patient is . Other workup which included a d-dimer and Doppler extremity do not support pulmonary embolism. Clinical suspicion is low. Patient had a repeat CT angios of the chest today, which was another suboptimal study, but no central embolus was identified. Clinically patient denies any dyspnea, her chest pain has resolved. 2 at 20th week of gestation 3 smoker 4 obstructive sleep apnea Plan: Repeat CT angios the chest was reviewed, although this wasn't on the suboptimal study there was no central embolus identified. Clinical patient denies any dyspnea, she is maintaining stable oxygenation on room air, her chest pain has resolved, her vital signs are stable. Pulmonary standpoint patient can be discharge home today, on no anticoagulation. Stop heparin drip. She was advised to present back to the hospital if her symptoms recurred. I performed a history & physical examination of the patient and discussed their management with my nurse practitioner, Jyoti Coto. I reviewed the nurse practitioner's note and agree with the documented findings and plan of care. Lung sounds are clear. The findings and the impression was discussed with the patient. I attest to the documentation by the nurse practitioner. Time with Patient: Less than 30
--- NOTE | 2017-12-23 04:05 | DS ---
DISCHARGE SUMMARY DATE OF ADMISSION: December 20, 2017. DATE OF DISCHARGE: December 22, 2017. FINAL DIAGNOSES: 1. Acute right chest wall pain possibly costochondritis. 2. Chronic nicotine dependence patient is a cigarette smoker. 3. IV heparin monitoring. 4. 21 week intrauterine live. HOSPITAL COURSE: This is a 37-year-old patient with a right chest wall pain that is reproducible, felt to be possibly costochondritis. The patient did have two CT scans inconclusive. Doppler of the lower extremity was negative. I discussed with Dr. Rae, who already discussed with the patient today that this was felt extremely unlikely to be PE. The patient did not want to take the anticoagulation understanding the risks. The patient also advised against smoking. CONSULTATION: Dr. Rae from Pulmonary, Dr. Levine from [facility]. DISCHARGE MEDICATIONS: 1. Protonix 80 mg a day. 2. multivitamin 1 capsule p.o. daily. FOLLOWUP: Follow up with Dr. Levine in 1 week. Follow up with Dr. Price in 1 week. Follow up with Dr. Rae on January,. EXAM: Lungs are clear. Cardiovascular 1st and 2nd sounds normal. Abdomen: . Uterus can be felt. Copy to Dr. Price. MMROHITL / BRAINN: [id number] /
== END 2017-12-22 14:10 | disposition home or self-care (01) | DRG 781 ==
LOC: EC 11:01 → 6SEL 17:04 → OBSVTOIN 17:04 → 6SEL 23:51 → 5ONC 12-21 17:33
PROVIDERS: ADMIT Hospitalist; ATTEND Hospitalist
DX: O99.89 Other specified diseases and conditions complicating pregnancy, childbirth and the puerperium (principal); J98.11 Atelectasis; O24.419 Gestational diabetes mellitus in pregnancy, unspecified control; F17.210 Nicotine dependence, cigarettes, uncomplicated; O99.332 Smoking (tobacco) complicating pregnancy, second trimester; O99.342 Other mental disorders complicating pregnancy, second trimester; O99.612 Diseases of the digestive system complicating pregnancy, second trimester; K21.9 Gastro-esophageal reflux disease without esophagitis; M94.0 Chondrocostal junction syndrome [Tietze]; G47.33 Obstructive sleep apnea (adult) (pediatric); O99.352 Diseases of the nervous system complicating pregnancy, second trimester; O99.512 Diseases of the respiratory system complicating pregnancy, second trimester; Z3A.21 21 weeks gestation of pregnancy; Z82.5 Family history of asthma and other chronic lower respiratory diseases; Z82.62 Family history of osteoporosis; Z88.6 Allergy status to analgesic agent
CPT/HCPCS: 36415; 71046; 71275; 76805; 80048; 80076; 81003; 83036; 85025; 85379; 85610; 85730; 93005; 93970; 96365; 96366; 96376; 99285

== ENCOUNTER 2018-02-24 17:43 | Outpatient (CLI) | payer OTHER ==
[2018-02-24 18:27] VITALS: BP 129/64; PULSE 92; RESP 16; TEMP 98
--- NOTE | 2018-02-24 20:26 | US ---
EXAMINATION TYPE: US OB >= 14 wk fetus DATE OF EXAM: 02/24/2018 COMPARISON: None CLINICAL HISTORY: placenta positionAbdomen pain TECHNIQUE: Transabdominal (TA) GESTATIONAL AGE / DATING Physician Established: (30 weeks/1 days) EDC: 05/04/2018 Dates by LMP: (30 weeks/1 days) EDC: 05/04/2018 Dates by First Scan: (20 weeks/4 days) EDC: 05/05/2018 Dates by Current Scan: (30 weeks/5 days) EDC: 04/30/2018 SURVEY IUP: Single PLACENTA: Anterior PREVIA: No Previa GIN: 15.64 cm Normal CERVICAL LENGTH (transabdominal: norm > 3.0cm): 3.5 cm BIOMETRY PRESENTATION: Vertex LIE: Longitudinal BPD: 8.0 cm 32 weeks / 1 days HC: 27.9 cm 30 weeks / 4 days AC: 25.3 cm 29 weeks / 3 days FL: 6.2 cm 31 weeks / 6 days ESTIMATED WEIGHT IN GRAMS: 1599 grams ESTIMATED WEIGHT IN LBS/OZ: 3 lbs. 8 oz. WEIGHT PERCENTAGE BASED ON ESTABLISHED DATES: 52.6% HC/AC: 1.1cm Normal FL/AC: 24.34 cm Normal HEART RATE: 140 bpm RHYTHM: Normal IMPRESSION: VIABLE IUP 30W 5D HR 140 BPM SALLY 05/04/2018.
--- NOTE | 2018-02-24 21:10 | P.MSEPDOC ---
Presenting Problems - Arrival Data Date of Arrival on Unit: 02/24/18 Time of Arrival on Unit: 17:42 Mode of Transport: Portable - Complaint OB-Reason for Admission/Chief Complaint: Vaginal Bleeding Medical History - Information : 3 Para: 2 Term: 0 : 0 Abortions: Spontaneous or Elective: 0 Number of Living Children: 2 - Gestational Age Gestational Age by SALLY (wks/days): 30 Weeks and 1 Days Review of Systems - Review of Systems Constitutional: No problems Breast: No problems ENT: No problems Cardiovascular: No problems Respiratory: No problems Gastrointestinal: No problems Genitourinary: No problems Musculoskeletal: No problems Neurological: No problems Skin: No problems Vital Signs - Temperature Temperature: 98.0 F Temperature Source: Temporal Artery Scan - Pulse Right Sitting Brachial Pulse Rate: 92 Pulse Assessment Method: Automatic Cuff - Respirations Respiratory Rate: 16 Oxygen Delivery Method: Room Air O2 Sat by Pulse Oximetry: 96 - Blood Pressure Right Arm Sitting Blood Pressure: 129/64 Blood Pressure Mean: 85 Blood Pressure Source: Automatic Cuff Medical Screen Scoring (Pre) - Cervical Exam Dilation: 0 cm = 0 Effacement: Exam Deferred Membranes: Intact - Uterine Contractions Frequency: N/A Duration: N/A Intensity: N/A - Maternal Vital Signs Maternal Temperature: N/A Maternal Blood Pressure: N/A Signs of Preeclampsia: N/A Maternal Respirations: N/A - Pain Assessment Pain Location and Character: Upper, Abdomen Pain Scale Used: Numeric (1 - 10) Pain Intensity: 5 Pain Management Goal: 0 Pain Description: Cramping Pain Radiation Location: 0 Pain Frequency: Occasional Pain Duration: 5 Pain Duration Units: Minutes Pain Behavior: None Exhibited Effects of Pain: 0 Pain Aggravating Factors: Bending - Maternal Trauma Maternal Trauma: N/A - Assessment Baseline FHR: 130 Heart Rate - NICHD Category: Category I (Normal) = 0 NST: Reactive Position: N/A Station: N/A - Total Score Total Score (Pre): 0 - Level of Risk Level of Risk: N/A Physician Notification (Pre) - Physician Notified Physician Notified Date: 02/24/18 Physician Notified Time: 18:23 Physician/Practitioner Notifed:: dr weeks Spoke With: dr weeks New Order Received: Yes (ob u/s) Medical Screen Scoring (Post) - Cervical Exam Dilation: 0 cm = 0 Membranes: Intact - Uterine Contractions Frequency: N/A Duration: N/A Intensity: N/A - Maternal Vital Signs Maternal Temperature: N/A Maternal Blood Pressure: N/A Signs of Preeclampsia: N/A Maternal Respirations: N/A - Assessment Heart Rate: 130 Heart Rate - NICHD Category: Category I (Normal) = 0 NST: Reactive - Total Score Total Score (Post): 0 - Post Treatment Level of Risk Post Treatment Level of Risk: Low (0-5) Physician Notification (Post) - Physician Notified Physician Notified Date: 02/24/18 Physician Notified Time: 19:37 Physician/Practitioner Notified:: DR WEEKS New Order Received: Yes - Notification Comment Comment: pt may call Dr Levine in the am if she needs work restrictions, hours cut back. Disposition - Disposition OB Disposition: Discharge to home, Written follow up instructions reviewed Discharge Date: 02/24/18 Discharge Time: 19:45 I agree with the RN Medical Screening Exam: Yes Risk & Benefit of care provided described in d/c instruction: Yes Diagnosis: SPOTTING COMPLICATING , THIRD TRIMESTER
== END 2018-02-24 19:45 | disposition home or self-care (01) ==
LOC: FBPOP 17:43
PROVIDERS: ATTEND Obstetrics & Gynecology
DX: O26.853 Spotting complicating pregnancy, third trimester (principal); Z3A.30 30 weeks gestation of pregnancy
CPT/HCPCS: 59025; 76805; 99213

== ENCOUNTER 2018-04-04 16:43 | Outpatient (CLI) | payer OTHER ==
[2018-04-04 18:06] VITALS: BP 136/85; PULSE 95; RESP 16; TEMP 97.9
--- NOTE | 2018-04-05 00:16 | P.MSEPDOC ---
Presenting Problems - Arrival Data Date of Arrival on Unit: 04/04/18 Time of Arrival on Unit: 16:40 Mode of Transport: Ambulatory - Complaint OB-Reason for Admission/Chief Complaint: Rule Out PROM, Scheduled Comment: PROM clear fluid 1300 Medical History - Information : 3 Para: 2 Term: 2 : 0 Abortions: Spontaneous or Elective: 0 Number of Living Children: 2 - Gestational Age Gestational Age by SALLY (wks/days): 35 Weeks and 5 Days - History Complications: Prior Review of Systems - Review of Systems Constitutional: No problems Breast: No problems ENT: No problems Cardiovascular: No problems Respiratory: No problems Gastrointestinal: No problems Genitourinary: No problems Musculoskeletal: No problems Neurological: No problems Skin: No problems Vital Signs - Temperature Temperature: 97.9 F Temperature Source: Temporal Artery Scan - Pulse Right Brachial Pulse Rate: 95 Pulse Assessment Method: Automatic Cuff - Respirations Respiratory Rate: 16 Oxygen Delivery Method: Room Air O2 Sat by Pulse Oximetry: 97 - Blood Pressure Right Arm Blood Pressure: 136/85 Blood Pressure Mean: 102 Blood Pressure Source: Automatic Cuff Medical Screen Scoring (Pre) - Cervical Exam Dilation: Exam Deferred Effacement: Exam Deferred Membranes: Intact - Uterine Contractions Frequency: > 5 minutes apart = 1 Duration: > 40 seconds = 2 Intensity: N/A - Assessment Baseline FHR: 125 Heart Rate - NICHD Category: Category I (Normal) = 0 NST: Reactive - Total Score Total Score (Pre): 3 - Level of Risk Level of Risk: Low (0-5) Physician Notification (Pre) - Physician Notified Physician Notified Date: 04/04/18 Physician Notified Time: 17:32 Spoke With: Baljeet Ham Order Received: Yes (discharge) Disposition - Disposition OB Disposition: Discharge to home, Written follow up instructions reviewed Discharge Date: 04/04/18 Discharge Time: 17:40 I agree with the RN Medical Screening Exam: Yes Risk & Benefit of care provided described in d/c instruction: Yes Diagnosis: FALSE LABOR BEFORE 37 COMPLETED WEEKS OF GEST, THIRD TRI
== END 2018-04-04 17:40 | disposition home or self-care (01) ==
LOC: FBPOP 16:43
PROVIDERS: ATTEND Obstetrics & Gynecology
DX: O47.03 False labor before 37 completed weeks of gestation, third trimester (principal); Z3A.35 35 weeks gestation of pregnancy
CPT/HCPCS: 59025; 84112; 99213

== ENCOUNTER 2018-04-17 14:42 | Outpatient (CLI) | payer OTHER ==
[2018-04-17 15:03] LABS: Appearance,Urine Clear (Clear); Bilirubin,Urine Negative (Negative); Blood,Urine Negative (Negative); Color,Urine Light Yellow; Glucose,Urine (UA) Negative (Negative); Ketones,Urine Negative (Negative); Leukocyte Esterase,Urine Negative (Negative); Nitrite,Urine Negative (Negative); PH, Urine 6.5 (5.0-8.0); Protein,Urine Negative (Negative); Specific Gravity,Urine 1.005 (1.001-1.035); Urobilinogen,Urine <2.0 mg/dL (<2.0)
[2018-04-17 15:43] VITALS: BP 132/83; PULSE 100; RESP 16; TEMP 97.5
--- NOTE | 2018-04-18 06:38 | P.MSEPDOC ---
Presenting Problems - Arrival Data Date of Arrival on Unit: 04/17/18 Time of Arrival on Unit: 14:42 Mode of Transport: Ambulatory - Complaint OB-Reason for Admission/Chief Complaint: PIH Comment: headache x 2 days Medical History - Information : 3 Para: 2 Term: 2 : 0 Abortions: Spontaneous or Elective: 0 Number of Living Children: 2 - Gestational Age Gestational Age by SALLY (wks/days): 37 Weeks and 4 Days - History Complications: Prior , Smoker Review of Systems - Review of Systems Constitutional: No problems Breast: No problems ENT: No problems Cardiovascular: No problems Respiratory: No problems Gastrointestinal: No problems Genitourinary: No problems Musculoskeletal: No problems Neurological: No problems Skin: No problems Vital Signs - Temperature Temperature: 97.5 F Temperature Source: Temporal Artery Scan - Pulse Right Brachial Pulse Rate: 100 Pulse Assessment Method: Automatic Cuff - Respirations Respiratory Rate: 16 Oxygen Delivery Method: Room Air O2 Sat by Pulse Oximetry: 97 - Blood Pressure Right Arm Blood Pressure: 132/83 Blood Pressure Mean: 99 Blood Pressure Source: Automatic Cuff Medical Screen Scoring (Pre) - Cervical Exam Dilation: Exam Deferred Effacement: Exam Deferred Membranes: Intact - Uterine Contractions Frequency: N/A Duration: N/A Intensity: N/A - Maternal Vital Signs Maternal Temperature: N/A Maternal Blood Pressure: N/A Signs of Preeclampsia: N/A Maternal Respirations: N/A - Pain Assessment Pain Location and Character: Head Pain Scale Used: Numeric (1 - 10) Pain Intensity: 7 Pain Management Goal: 2 Pain Description: *Acute, Aching Pain Frequency: Constant Pain Duration: 2 Pain Duration Units: Days Pain Behavior: None Exhibited Pain Aggravating Factors: Bright Light Non-Pharmacological Interventions: Darkened Room - Maternal Trauma Maternal Trauma: N/A - Assessment Baseline FHR: 135 Heart Rate - NICHD Category: Category I (Normal) = 0 NST: Reactive Position: N/A Station: N/A - Total Score Total Score (Pre): 0 - Level of Risk Level of Risk: Low (0-5) Physician Notification (Pre) - Physician Notified Physician Notified Date: 04/17/18 Physician Notified Time: 15:10 Spoke With: Karena Ham Order Received: Yes (discharge to home) - Notification Comment Comment: follow up reg sched appt Wednesday Disposition - Disposition OB Disposition: Triage, Discharge to home, Written follow up instructions reviewed Discharge Date: 04/17/18 Discharge Time: 15:15 I agree with the RN Medical Screening Exam: Yes Risk & Benefit of care provided described in d/c instruction: Yes Diagnosis: RELATED CONDITIONS, UNSPECIFIED, THIRD TRIMESTER
== END 2018-04-17 15:15 | disposition home or self-care (01) ==
LOC: FBPOP 14:42
PROVIDERS: ATTEND Obstetrics & Gynecology
DX: O26.93 Pregnancy related conditions, unspecified, third trimester (principal); O99.333 Smoking (tobacco) complicating pregnancy, third trimester; Z3A.37 37 weeks gestation of pregnancy
CPT/HCPCS: 59025; 81003; 99213

== ENCOUNTER 2018-04-18 11:39 | Outpatient (CLI) | payer OTHER ==
[2018-04-18 12:06] LABS: Appearance,Urine Clear (Clear); Bilirubin,Urine Negative (Negative); Blood,Urine Negative (Negative); Color,Urine Yellow; Glucose,Urine (UA) 3+ (Negative); Ketones,Urine Negative (Negative); Leukocyte Esterase,Urine Negative (Negative); Nitrite,Urine Negative (Negative); Protein,Urine Negative (Negative); Specific Gravity,Urine 1.012 (1.001-1.035); Urobilinogen,Urine <2.0 mg/dL (<2.0)
[2018-04-18 12:23] LABS: Basophils % (A) 0 %; Eosinophils # (A) 0.3 k/uL (0-0.7); Eosinophils % (A) 2 %; HCT 44.9 % (34.0-46.0); HGB 14.9 gm/dL (11.4-16.0); Lymphocytes # (A) 1.3 k/uL (1.0-4.8); Lymphocytes % (A) 10 %; MCH 28.7 pg (25.0-35.0); MCHC 33.2 g/dL (31.0-37.0); MCV 86.5 fL (80.0-100.0); Mean Platelet Volume 8.7; Monocytes # (A) 0.8 k/uL (0-1.0); Monocytes % (A) 6 %; Neutrophils # (A) 11.5 k/uL (1.3-7.7); Neutrophils % (A) 82 %; Platelet Count 150 k/uL (150-450); RBC 5.19 m/uL (3.80-5.40); RDW 15.7 % (11.5-15.5)
[2018-04-18 12:27] LABS: ALT 27 U/L (9-52); AST 16 U/L (14-36); Blood Urea Nitrogen 12 mg/dL (7-17); LDH 365 U/L (313-618); Uric Acid 4.7 mg/dL (3.7-7.4)
[2018-04-18 12:29] LABS: Creatinine,Urine Random 74.6 mg/dL
[2018-04-18] MEDS ORDERED: Acetaminophen-Codeine 300-30mg TAB PO STA (12:52)
[2018-04-18 13:11] LABS: INR 0.9 (<1.2); Partial Thromboplastin Time 22.2 sec (22.0-30.0); Prothrombin Time 9.3 sec (9.0-12.0)
--- NOTE | 2018-04-25 08:09 | P.MSEPDOC ---
Presenting Problems - Arrival Data Date of Arrival on Unit: 04/18/18 Time of Arrival on Unit: 11:39 Mode of Transport: Ambulatory - Complaint OB-Reason for Admission/Chief Complaint: PIH Comment: Pt sent from [facility] with a script for a PIH eval; Dx Preelampsia O14.90 Physician Notification (Pre) - Physician Notified Physician Notified Date: 04/18/18 Physician Notified Time: 13:45 Physician/Practitioner Notifed:: Abner Spoke With: Abner New Order Received: Yes - Notification Comment Comment: Pt d/c with script for Fiorcet, follow up with Dr. Levine in 1 week. Pt ok to be off monitor but remain in triage for another hour r/t T3 administration. Disposition - Disposition OB Disposition: Discharge to home, Written follow up instructions reviewed Discharge Date: 04/18/18 Discharge Time: 13:53 I agree with the RN Medical Screening Exam: Yes Risk & Benefit of care provided described in d/c instruction: Yes Diagnosis: GESTATIONAL HTN W/O SIGNIFICANT PROTEINURIA, THIRD TRIMESTER
== END 2018-04-18 14:45 | disposition home or self-care (01) ==
LOC: FBPOP 11:39
PROVIDERS: ATTEND Obstetrics & Gynecology
DX: O13.3 Gestational [pregnancy-induced] hypertension without significant proteinuria, third trimester (principal); Z3A.00 Weeks of gestation of pregnancy not specified
CPT/HCPCS: 59025; 81003; 82565; 82570; 83615; 84156; 84450; 84460; 84520; 84550; 85025; 85384; 85610; 85730

== ENCOUNTER 2018-04-29 06:04 | Inpatient (IN) | payer OTHER ==
[2018-04-27 14:59] VITALS: BMI 33.0
[2018-04-29] MEDS ORDERED: ceFAZolin IN SWFI 2 GM/20 ML SYRINGE IVP ONE (06:17)
[2018-04-29] MEDS ORDERED: CITRIC ACID-SODIUM CITRATE 15 ML CUP PO ONE (06:17)
[2018-04-29] MEDS: LACTATED RINGERS 1,000 ML IV SCH ×3 (06:33→16:00)
[2018-04-29 06:35] LABS: Anisocytosis Slight; Basophils % (A) 0 %; Eosinophils # (A) 0.3 k/uL (0-0.7); Eosinophils % (A) 2 %; HCT 43.3 % (34.0-46.0); Lymphocytes # (A) 1.4 k/uL (1.0-4.8); Lymphocytes % (A) 12 %; MCH 28.7 pg (25.0-35.0); MCHC 32.3 g/dL (31.0-37.0); MCV 88.8 fL (80.0-100.0); Mean Platelet Volume 8.5; Monocytes # (A) 0.7 k/uL (0-1.0); Monocytes % (A) 6 %; Neutrophils # (A) 9.6 k/uL (1.3-7.7); Neutrophils % (A) 78 %; Platelet Count 149 k/uL (150-450); RBC 4.88 m/uL (3.80-5.40); RDW 16.2 % (11.5-15.5); WBC 12.3 k/uL (3.8-10.6)
[2018-04-29] MEDS ORDERED: ONDANSETRON 4 MG/2 ML VIAL ONE (07:56)
[2018-04-29] MEDS ORDERED: NALBUPHINE 10 MG/ML VIAL (10ML MDV) ONE (07:56)
[2018-04-29] MEDS ORDERED: KETOROLAC 30 MG/ML 1 ML VIAL ONE (07:56)
[2018-04-29] MEDS ORDERED: PROPOFOL 10 MG/ML 20 ML VIAL IV ONE (07:56)
[2018-04-29] MEDS ORDERED: OXYTOCIN 10 UNIT/ML 1 ML VIAL ONE (07:56)
[2018-04-29] MEDS ORDERED: MIDAZOLAM 2 MG/2 ML VIAL ONE (07:56)
[2018-04-29] MEDS ORDERED: MORPHINE SULFATE (PF) 0.3 MG/0.3 ML SYR ONE (07:56)
[2018-04-29] MEDS ORDERED: ACETAMINOPHEN TAB 325 MG TAB PO PRN (08:46)
[2018-04-29] MEDS ORDERED: NALOXONE 0.4 MG/ML 1 ML VIAL IV PRN ×2 (08:46→11:59)
[2018-04-29] MEDS ORDERED: METOCLOPRAMIDE 5 MG/ML 2 ML VIAL IVP PRN (08:46)
[2018-04-29] MEDS ORDERED: ZOLPIDEM 5 MG TAB PO PRN (08:46)
[2018-04-29] MEDS ORDERED: MEASLES-MUMPS-RUBELLA VACC/PF 12,500 UNIT/0.5 ML VIAL SQ ONE (08:46)
[2018-04-29] MEDS ORDERED: diphenhydrAMINE 50 MG CAP PO PRN (08:46)
[2018-04-29] MEDS ORDERED: diphenhydrAMINE 25 MG CAP PO PRN (08:46)
[2018-04-29] MEDS ORDERED: ONDANSETRON 4 MG/2 ML VIAL IVP PRN (08:46)
[2018-04-29] MEDS ORDERED: diphenhydrAMINE 50 MG/ML 1 ML VIAL IVP PRN ×2 (08:46)
--- NOTE | 2018-04-29 08:49 | P.HPOB ---
History of Present Illness H&P Date: 04/29/18 Chief Complaint: Intrauterine at term: Previous section: Gestational diab 2 prior sections who arrives for repeat section and bilateral partial salpingectomy. Her course has been complicated by gestational diabetes which she is had the past. She was co-managed with maternal medicine and has received NSTs and ultrasounds serially to verify that the baby was doing well. No other competitions or issues are noted at this time. Pertinent labs include A- blood type she did receive Landon gamma at 28 weeks. heart tones reveal a category 1 tracing and all questions are answered for her prior to proceeding to the operating room and risks/ benefits/alternatives were reviewed and all questions again were answered. Past Medical History Past Medical History: GERD/Reflux, Sleep Apnea/CPAP/BIPAP Additional Past Medical History / Comment(s): PAST LT OVARIAN CYST History of Any Multi-Drug Resistant Organisms: None Reported Past Surgical History: Section, Tonsillectomy Additional Past Surgical History / Comment(s): X2 C-SECTIONS Past Anesthesia/Blood Transfusion Reactions: No Reported Reaction Additional Past Anesthesia/Blood Transfusion Reaction / Comment(s): AGE 16 HAD BLOOD TRANSFUSION D/T BLEEDING DURING TONSILECTOMY Past Psychological History: Depression Additional Psychological History / Comment(s): AT TIME OF THIS ADMIT PT DENIES ANY PROBLEM WITH DEPRESSION Smoking Status: Current every day smoker Past Alcohol Use History: None Reported Additional Past Alcohol Use History / Comment(s): STARTED SMOKING AT AGE 16 AND SMOKED 5 CIG PER DAY Past Drug Use History: None Reported - Past Family History Father History Unknown: Yes Mother Family Medical History: COPD, Hyperlipidemia Additional Family Medical History / Comment(s): ENPHYSEMA, OSTEOPOROSIS Medications and Allergies Home Medications Medication Instructions Recorded Confirmed Type Fcy-Wuyh-Rjbiq Acid 1 cap PO DAILY 12/20/17 04/29/18 History [-U Capsule (formulary)] Calcium Carbonate [Calcium] 600 mg PO DAILY 04/18/18 04/29/18 History Butalb/Acetaminophen/Caffeine 1 each PO Q6H PRN 04/27/18 04/29/18 History [Fioricet 50-325-40] Allergies Allergy/AdvReac Type Severity Reaction Status Date / Time aspirin AdvReac WAS TOLD Verified 04/27/18 14:54 NOT TO TAKE R/T BLEEDS EASY bee venom protein (honey bee) AdvReac Swelling Verified 04/27/18 14:55 Exam Osteopathic Statement: *. No significant issues noted on an osteopathic structural exam other than those noted in the History and Physical/Consult. Vital Signs Temp Pulse Resp BP Pulse Ox 04/29/18 06:17 98.2 F 87 16 139/65 98 Intake and Output 04/28/18 04/29/18 04/29/18 22:59 06:59 14:59 Other: Weight 95.708 kg - OBG Physical Exam Breast: both: normal (no masses) Abdomen: bowel sounds normal, no diffuse tenderness, no bruit present, no guarding noted, no hepatomegaly, no splenomegaly, no mass Vulva: both: normal Vagina: normal moisture, no discharge Cervix: no lesion, no discharge Uterus: normal size, normal contour Adnexa: both: normal Anus/Rectum: normal perianal skin, no rectal mass, no hemorrhoids, heme negative Results Result Diagrams: 04/29/18 06:25 Abnormal Lab Results - Last 24 Hours (Table) 04/29/18 Range/Units 06:25 WBC 12.3 H (3.8-10.6) k/uL RDW 16.2 H (11.5-15.5) % Plt Count 149 L (150-450) k/uL Neutrophils # 9.6 H (1.3-7.7) k/uL
--- NOTE | 2018-04-29 08:53 | P.OP ---
Date of Procedure: 04/29/18 Preoperative Diagnosis: Intrauterine at term: Gestational diabetes: Prior section: Family planning Postoperative Diagnosis: Same Procedure(s) Performed: Repeat low transverse section Anesthesia: spinal Surgeon: Kodak Levine Marble Supervisor #1: Josse Thurston Estimated Blood Loss (ml): 400 IV fluids (ml): 1,100 Urine output (ml): 100 Pathology: other (Placenta) Condition: stable Disposition: floor Operative Findings: Male scores were 8 and 9 at one and 5 minutes with a weight of 6 lbs. 1 oz. Placenta was advanced with multiple complications an area of questionable old bleed, it will be sent to pathology for evaluation. Description of Procedure: Patient was taken to the operating suite where a spinal anesthetic was found to be adequate. She was prepped and draped in the normal sterile fashion and placed in the dorsal supine position with leftward tilt. Initially a Pfannenstiel skin incision was made and this incision was then carried through to the underlying layer of fascia was second knife. Fascia was then nicked in the midline and this opening was extended laterally with Higuera scissors. Superior and inferior aspect of this incision were then grasped tented up and bluntly and sharply dissected off the rectus muscles. Rectus muscles were then divided the midline and blunt dissection the peritoneum was made. This opening was then extended superiorly and inferiorly with good visualization of both bowel bladder. Bladder blade was then placed and the bladder flap identified, it was entered sharply with Metzenbaum scissors and this opening was extended across the face of the uterus with Metzenbaum scissors, latter was then bluntly dissected out of the operative field. Knife was then used to to incise uterus and this opening was fully developed with a hemostat. Uterus was fully extended with blunt dissection, and clear fluid is noted. Head was then atraumatically delivered followed by anterior and posterior shoulders. Once baby was delivered umbilical cord was clamped and cut in usual fashion an nursery personnel was present to assume care. Placenta was then delivered intact and an area on the outer aspect of the placenta did appear like it had an old bleed this will be sent to pathology for evaluation. Once blood and debris was removed from the uterus and uterus exteriorized was closed in 2 layers with 0 Vicryl suture. During deliver the head the lower uterine segment didn't T down and a extra suture was placed to reapproximate this T defect in the midline to allow for the remainder of the uterus closed without difficulty. Blood and debris was then suctioned from the posterior cul-de-sac. Fallopian tubes were then ligated, initially a hemostat was placed 2 cm from uterine cornu and a window was created in the mesosalpinx. 2 proximal and 2 distal 2-0 silk sutures were placed 2 cm apart intervening segment excised and tips cauterized. Uterus was then reinserted into the abdomen. Peritoneal layer was reapproximated with 0 Vicryl suture. Fascial layer was closed with 0 Vicryl suture. 3-0 Vicryl was placed in deep subcuticular tissues to reapproximate skin and close space. Skin was then closed with 3-0 Vicryl subcuticularly. Sponge, lap, needle counts were all correct 2. She was then taken to the recovery room in stable and satisfactory condition.
[2018-04-29] MEDS ORDERED: MORPHINE SULFATE 4 MG/ML SYRINGE IVP PRN (11:59)
[2018-04-29 13:38] LABS: Hemoglobin A1C 5.5 % (4.0-6.0)
[2018-04-29] MEDS: KETOROLAC 30 MG/ML 1 ML VIAL IVP PRN ×2 (14:53→22:40)
[2018-04-29] MEDS: SENNOSIDES-DOCUSATE SODIUM 1 EACH TAB PO SCH (20:08)
[2018-04-30] MEDS: SENNOSIDES-DOCUSATE SODIUM 1 EACH TAB PO SCH ×2 (07:34→22:41)
[2018-04-30] MEDS: IBUPROFEN 600 MG TAB PO PRN ×2 (07:34→16:07)
[2018-04-30 08:19] LABS: Basophils % (A) 0 %; Eosinophils # (A) 0.1 k/uL (0-0.7); Eosinophils % (A) 1 %; HCT 41.6 % (34.0-46.0); HGB 12.9 gm/dL (11.4-16.0); Lymphocytes # (A) 0.8 k/uL (1.0-4.8); Lymphocytes % (A) 7 %; MCH 27.2 pg (25.0-35.0); MCHC 31.1 g/dL (31.0-37.0); MCV 87.5 fL (80.0-100.0); Mean Platelet Volume 8.7; Monocytes # (A) 0.5 k/uL (0-1.0); Monocytes % (A) 5 %; Neutrophils # (A) 8.8 k/uL (1.3-7.7); Neutrophils % (A) 85 %; Platelet Count 122 k/uL (150-450); RBC 4.75 m/uL (3.80-5.40); RDW 15.9 % (11.5-15.5); WBC 10.4 k/uL (3.8-10.6)
--- NOTE | 2018-04-30 10:15 | P.PN ---
Progress Note - Text Anesthesia POD 1. Patient is status post section under spinal anesthesia with intra-thecal preservative free morphine and 100 g. Minimal pruritus, good post-op analgesia, and no headache or other complications.
[2018-04-30] MEDS: FAMOTIDINE 20 MG TAB PO SCH (13:05)
[2018-04-30] MEDS: LACTATED RINGERS 1,000 ML IV SCH ×6 (22:41→22:45)
[2018-04-30] MEDS: HYDROcodone/APAP 7.5-325MG 1 EACH TAB PO PRN (23:19)
[2018-05-01] MEDS: HYDROcodone/APAP 7.5-325MG 1 EACH TAB PO PRN (06:57)
[2018-05-01] MEDS: SENNOSIDES-DOCUSATE SODIUM 1 EACH TAB PO SCH (08:57)
[2018-05-01 09:06] VITALS: BP 142/83; PULSE 97; RESP 18; TEMP 98.2
--- NOTE | 2018-05-01 09:33 | P.DS ---
Providers Date of admission: 04/29/18 06:04 Expected date of discharge: 05/01/18 Attending physician: Kodak Levine Primary care physician: Stated None Hospital Course: Velia is doing very well postop day 2. She is ambulating, voiding, and she is tolerating her diet. She voices no complaints. Vital signs are stable and afebrile. Heart regular, lungs clear, extremities without pain. Abdomen is soft and nontender other than incisional pain. Uterus is firm. Lochia is reported be light. Incision is otherwise clean dry and intact. She voices no complaints this time. Prescription for Motrin and [place]ister or forwarded to her pharmacy. Discharge instructions thoroughly reviewed. All questions are answered for her prior to discharge and she is stable for discharge this time. Patient Condition at Discharge: Good Plan - Discharge Summary Discharge Rx Participant: Yes New Discharge Prescriptions: New HYDROcodone/APAP 5-325MG [[place] 5-325] 1 tab PO Q4HR PRN 3 Days #18 tab PRN Reason: Pain Ibuprofen [Motrin] 600 mg PO Q6HR PRN #30 tab PRN Reason: Pain No Action Gol-Vmux-Xkhrr Acid [-U Capsule (formulary)] 1 cap PO DAILY Calcium Carbonate [Calcium] 600 mg PO DAILY Butalb/Acetaminophen/Caffeine [Fioricet 50-325-40] 1 each PO Q6H PRN PRN Reason: Migraine Headache Discharge Medication List Wpn-Zkmt-Mzgct Acid [-U Capsule (formulary)] 1 cap PO DAILY [History] Calcium Carbonate [Calcium] 600 mg PO DAILY 04/18/18 [History] Butalb/Acetaminophen/Caffeine [Fioricet 50-325-40] 1 each PO Q6H PRN 04/27/18 [ History] HYDROcodone/APAP 5-325MG [[place] 5-325] 1 tab PO Q4HR PRN 3 Days #18 tab [Rx] Ibuprofen [Motrin] 600 mg PO Q6HR PRN #30 tab 05/01/18 [Rx] Follow up Appointment(s)/Referral(s): Kodak Levine DO [Doctor of Osteopathic Medicine] - 1 Week Activity/Diet/Wound Care/Special Instructions: No heavy lifting, limit stairs and driving and pelvic rest. If any high temperatures, heavy bleeding, or severe pain call my office
[2018-05-01] MEDS: FAMOTIDINE 20 MG TAB PO SCH (10:04)
== END 2018-05-01 11:21 | disposition home or self-care (01) | DRG 765 ==
LOC: 4FBP 06:04
PROVIDERS: ADMIT Obstetrics & Gynecology; ATTEND Obstetrics & Gynecology
PROC: 0UB70ZZ Excision of Bilateral Fallopian Tubes, Open Approach (ICD-10-PCS; 2018-04-29)
PROC: 10D00Z1 Extraction of Products of Conception, Low, Open Approach (ICD-10-PCS; principal; 2018-04-29 08:00)
DX: O34.211 Maternal care for low transverse scar from previous cesarean delivery (principal); O99.354 Diseases of the nervous system complicating childbirth; O24.429 Gestational diabetes mellitus in childbirth, unspecified control; O99.334 Smoking (tobacco) complicating childbirth; F17.210 Nicotine dependence, cigarettes, uncomplicated; O99.62 Diseases of the digestive system complicating childbirth; Z37.0 Single live birth; K21.9 Gastro-esophageal reflux disease without esophagitis; G47.30 Sleep apnea, unspecified; O99.344 Other mental disorders complicating childbirth; F32.9 Major depressive disorder, single episode, unspecified; O26.893 Other specified pregnancy related conditions, third trimester; O99.72 Diseases of the skin and subcutaneous tissue complicating childbirth; Z3A.39 39 weeks gestation of pregnancy; L29.9 Pruritus, unspecified; Z82.5 Family history of asthma and other chronic lower respiratory diseases; Z82.62 Family history of osteoporosis; Z84.89 Family history of other specified conditions; Z30.2 Encounter for sterilization; Z88.6 Allergy status to analgesic agent; Z91.030 Bee allergy status
CPT/HCPCS: 83036; 85025; 86850; 86900; 86901; 88302; 88307; 90471; 90707

== ENCOUNTER 2021-01-15 13:50 | Emergency (ER) | payer OTHER ==
[2021-01-15 14:14] VITALS: BP 120/76; PULSE 94; RESP 18; TEMP 97.8
--- NOTE | 2021-01-15 14:38 | ED ---
General Adult HPI - General Chief complaint: Extremity Injury, Lower Stated complaint: R knee injury Time Seen by Provider: 01/15/21 14:10 Source: patient, RN notes reviewed, old records reviewed Mode of arrival: ambulatory Limitations: no limitations - History of Present Illness Initial comments: This is a 40-year-old female presents emergency Department complaining of right knee pain. Patient states she injured it while she was on a trampoline. Patient states the suprapatellar region is swollen and tender. Patient states she bought a brace which gives her some significant support. Patient denies any other injury. Patient denies hip injury ankle or foot injury. - Related Data Home Medications Medication Instructions Recorded Confirmed Ngp-Mmuu-Xhpnb Acid 1 cap PO DAILY 12/20/17 04/29/18 [-U Capsule (formulary)] Calcium Carbonate [Calcium] 600 mg PO DAILY 04/18/18 04/29/18 Butalb/Acetaminophen/Caffeine 1 each PO Q6H PRN 04/27/18 04/29/18 [Fioricet 50-325-40] Previous Rx's Medication Instructions Recorded HYDROcodone/APAP 5-325MG [[place] 1 tab PO Q4HR PRN 3 Days #18 tab 05/01/18 5-325] Ibuprofen [Motrin] 600 mg PO Q6HR PRN #30 tab 05/01/18 Ibuprofen [Motrin] 600 mg PO Q6HR PRN #20 tab 01/15/21 Allergies Allergy/AdvReac Type Severity Reaction Status Date / Time aspirin AdvReac WAS TOLD Verified 01/15/21 14:14 NOT TO TAKE R/T BLEEDS EASY bee venom protein (honey bee) AdvReac Swelling Verified 01/15/21 14:14 Review of Systems ROS Statement: Those systems with pertinent positive or pertinent negative responses have been documented in the HPI. ROS Other: All systems not noted in ROS Statement are negative. Past Medical History Past Medical History: GERD/Reflux, Sleep Apnea/CPAP/BIPAP Additional Past Medical History / Comment(s): PAST LT OVARIAN CYST History of Any Multi-Drug Resistant Organisms: None Reported Past Surgical History: Section, Tonsillectomy Additional Past Surgical History / Comment(s): X3 C-SECTIONS Past Anesthesia/Blood Transfusion Reactions: No Reported Reaction Additional Past Anesthesia/Blood Transfusion Reaction / Comment(s): AGE 16 HAD BLOOD TRANSFUSION D/T BLEEDING DURING TONSILECTOMY Past Psychological History: Depression Smoking Status: Current every day smoker Past Alcohol Use History: Occasional Past Drug Use History: None Reported - Past Family History Father History Unknown: Yes Mother Family Medical History: COPD, Hyperlipidemia Additional Family Medical History / Comment(s): ENPHYSEMA, OSTEOPOROSIS General Exam - General Exam Comments Initial Comments: GENERAL Patient is well-developed and well-nourished. Patient is in mild distress. EYES Patient's pupils are equal and round. Extraocular motion is intact SKIN Unremarkable NEURO The patient is alert and oriented 3 PYSCH Patient has normal interpersonal interactions. MUSCULOSKELETAL Patient has a suprapatellar effusion on the right knee. patient has no ligamentous laxity Limitations: no limitations Course Vital Signs 01/15/21 14:09 Temperature 97.8 F Pulse Rate 94 Respiratory 18 Rate Blood Pressure 120/76 O2 Sat by Pulse 97 Oximetry Medical Decision Making - Medical Decision Making X-ray of the knee shows no acute bony abnormality patient's knee does have a small effusion. Patient indicated she could take Motrin. Disposition Clinical Impression: Effusion of knee, Knee sprain Disposition: HOME SELF-CARE Condition: Good Instructions (If sedation given, give patient instructions): Knee Sprain (ED) Prescriptions: Ibuprofen [Motrin] 600 mg PO Q6HR PRN #20 tab PRN Reason: For pain Is patient prescribed a controlled substance at d/c from ED?: No Referrals: Librado Patton DO [Doctor of Osteopathic Medicine] - 1-2 days Time of Disposition: 15:03
--- NOTE | 2021-01-15 15:05 | XR ---
EXAMINATION TYPE: XR knee complete RT DATE OF EXAM: 01/15/2021 CLINICAL HISTORY: pain TECHNIQUE: Three views of the right knee are obtained. COMPARISON: None. FINDINGS: There is no acute fracture/dislocation. The tri-compartment joint spaces appear within no rmal limits. The overlying soft tissue appears unremarkable. IMPRESSION: There is no acute fracture or dislocation.ICD 10 NO FRACTURE, INITIAL EVALUATION
== END 2021-01-15 15:20 | disposition home or self-care (01) ==
LOC: EC 13:50
DX: S83.91XA Sprain of unspecified site of right knee, initial encounter (principal); M25.461 Effusion, right knee; K21.9 Gastro-esophageal reflux disease without esophagitis; G47.33 Obstructive sleep apnea (adult) (pediatric); F32.9 Major depressive disorder, single episode, unspecified; F17.200 Nicotine dependence, unspecified, uncomplicated; X58.XXXA Exposure to other specified factors, initial encounter; Y93.44 Activity, trampolining
CPT/HCPCS: 99283

== ENCOUNTER → 2021-09-10 | Outpatient (CLI) | payer BC, OTHER ==
--- NOTE | 2021-09-10 18:11 | XR ---
Result: History: Chronic low back pain. Comparison: None available. Technique: 3 views of the lumbar spine. Findings: The bone mineralization is normal. Images of the lumbar spine demonstrate 5 lumbar-type vertebrae. There is no acute fracture or sublux ation. The vertebral body heights are preserved throughout the imaged lumbar spine. There is severe disc height narrowing at L5-S1 with grade 2 anterolisthesis. The remaining disc heights are grossly m aintained. Impression: L5-S1 spondylosis with grade 2 anterolisthesis.
--- NOTE | 2021-09-10 18:12 | XR ---
RESULT: HISTORY: 719.45, M25.552. Chronic left hip pain. TECHNIQUE: 2 views of the left hip were obtained. COMPARISON: None. FINDINGS: There is no acute fracture or dislocation. The left hip joint is grossly preserved. IMPRESSION: No significant osseous abnormality.
== END | disposition home or self-care (01) ==
LOC: RADXRMAIN 17:35
PROVIDERS: ATTEND Family Medicine
DX: M47.817 Spondylosis without myelopathy or radiculopathy, lumbosacral region (principal); M43.17 Spondylolisthesis, lumbosacral region; M25.552 Pain in left hip
CPT/HCPCS: 72100; 73502

== ENCOUNTER → 2021-11-28 | Outpatient (CLI) | payer BC, OTHER ==
--- NOTE | 2021-11-28 13:45 | MR ---
EXAMINATION TYPE: MR lumbar spine wo/w con DATE OF EXAM: 11/28/2021 COMPARISON: Plain film 09/10/2021 HISTORY: Low back pain w/left sciatica TECHNIQUE: Multiplanar, multisequence images of the lumbar spine were acquired without and with 9.5 mL intraveno us Gadavist gadolinium contrast. T12-L1: There is a posterior disc herniation causing anterior mass effect on the thecal sac extending in the left posterior paracentral location. L1-L2: Normal disc appearance without desiccation. No herniation, protrusion or disc bulging. No ca nal stenosis is present. Foramina are patent bilaterally. L2-L3: Normal disc appearance without desiccation. No herniation, protrusion or disc bulging. No ca nal stenosis is present. Foramina are patent bilaterally. L3-L4: Normal disc appearance without desiccation. No herniation, protrusion or disc bulging. No ca nal stenosis is present. Foramina are patent bilaterally. L4-L5: Increased signal at the posterior aspect of the disc is suggestive of a small annular tear. No evident disc herniation or significant foraminal encroachment. L5-S1: Anterolisthesis results in bilateral significant foraminal encroachment, correlate for L5 radi culopathies. There is hypertrophic change of the facets. No evident disc herniation. Lumbar segments are intact. No paraspinal masses are identified. Conus medullaris has a normal appe arance. There is an anterolisthesis grade 2 to grade 3 L5-S1, bilateral spondylolysis at L5. Loss of disc height signal is present with vacuum phenomenon, there is remodeling present, extensive endplate marrow signal change. No significant spinal stenosis. No abnormal enhancement following contrast adm inistration. IMPRESSION: Spondylolysis with spondylolisthesis L5, correlate for L5 radiculopathies. Degenerative disc disease as described, disc herniation T12-L1
== END | disposition home or self-care (01) ==
LOC: RADMRIMAIN 09:55
PROVIDERS: ATTEND Family Medicine
DX: M43.16 Spondylolisthesis, lumbar region (principal); M51.36 Other intervertebral disc degeneration, lumbar region; M51.25 Other intervertebral disc displacement, thoracolumbar region
CPT/HCPCS: 72158; A9585

== ENCOUNTER → 2022-03-07 | Outpatient (CLI) | payer BC, OTHER | END | disposition home or self-care (01) | LOC: LABPAT 08:30 | PROVIDERS: ATTEND Orthopaedic Surgery | DX: Z01.812 Encounter for preprocedural laboratory examination (principal); Z22.322 Carrier or suspected carrier of Methicillin resistant Staphylococcus aureus; M43.16 Spondylolisthesis, lumbar region | CPT/HCPCS: 87070 ==

== ENCOUNTER → 2022-03-07 | Outpatient (CLI) | payer BC, OTHER ==
--- NOTE | 2022-03-08 21:01 | CT ---
EXAMINATION TYPE: CT lumbar spine wo con CT DLP: 1533 mGycm, Automated exposure control for dose reduction was used. DATE OF EXAM: 03/07/2022 8:31 AM COMPARISON: Lumbar spine MRI 11/28/2021. CLINICAL INDICATION:Female, 41 years old with history of M54.50 LOW BACK PAIN, LOW BACK PAIN TECHNIQUE: Multiple axial images were obtained from the midportion of T11 through the sacroiliac steffany nts. Soft tissue and bone windows in coronal and sagittal planes were obtained and reviewed. FINDINGS: There are 5 lumbar type vertebral bodies. Multilevel disc degeneration changes are seen throughout th e lumbar spine with grade 2 anterolisthesis of L5 on S1 with bilateral spondylolysis. No evidence of acute fracture. Discs: T12-L1, L1-L2, L2-L3, L3-L4, L4-L5: No significant spinal canal or neural foraminal stenosis is iden tified. L5-S1: Spondylolisthesis with bilateral spondylolysis result in at least moderate to severe neural fo raminal stenosis bilaterally. There is disc uncovering with anterior displacement of L5. IMPRESSION: Grade 2 anterolisthesis of L5 on S1 with bilateral spondylolysis resulting in disc uncovering and at least moderate to severe bilateral neural foraminal stenosis at this level.
== END | disposition home or self-care (01) ==
LOC: RADCTMAIN 08:01
PROVIDERS: ATTEND Orthopaedic Surgery
DX: M43.17 Spondylolisthesis, lumbosacral region (principal); M47.816 Spondylosis without myelopathy or radiculopathy, lumbar region; M48.061 Spinal stenosis, lumbar region without neurogenic claudication; M51.26 Other intervertebral disc displacement, lumbar region
CPT/HCPCS: 72131

== ENCOUNTER 2022-03-17 10:35 | Day surgery (SDC) | payer BC, OTHER ==
[2022-03-13 11:29] VITALS: BMI 33.6
--- NOTE | 2022-03-17 06:49 | P.HPOR ---
History of Present Illness H&P Date: 03/11/22 [facility] History and Physical Date of :[birth year] Age: 41 year Height: 5'7" Weight: 208 lbs BMI: 32.58 kg/m2 Occupation: Aide at school VAS: 4 CHIEF COMPLAINT: Lumbar pain DOI: chronic DOS: none Duration of current treatment regiment: 6 months HISTORY : Xrays No new xrays taken in office Trauma or injury No Work-Related No Pain description sharp. Location diffuse Patient notes that their pain radiates to left lower extremity Activity Modification yes , unable to stand or weightbear for extended periods of time. Hand Dominance right TREATMENTS COMPLETED: 6 weeks of PT completed? Month and Year of last PT date? 09/2021 Yes How many sessions? 8 Did it help? No, exacerbated her symptoms. Physician directed home exercise completed? yes , has previously trialed daily without relief of her symptoms. Medications yes List: Motrin (mild help) Aleve, Gabapentin (made worse), flexeril. Medrol Dosepak with moderate relief of her symptoms for 1 week. Alternative interventions Chiropractic: yes , without relief. Massage therapy: No R.I.C.E: yes , daily without relief. Brace: No Injections Yes How many? 1 Did they help? No made worse RFA: No SUBJECTIVE: Today Ms. Dorado presents to the office for a recheck of her low back and to review her smoking status and pre-operative review of the planned L4-S2 open decompression and fusion. Since the time of the last appointment the patient denies any improvements to her symptoms. She continues to complain of sharp low back pain radiating into the left lower extremity with associated numbness and tingling diffusely. Overall her symptoms are exacerbated with most daily activities which is making completion of her ADL's very challenging. Otherwise she denies any improvements to her symptoms with all abovementioned treatment modalities. Patient denies any denies any f/c/sob/cp, no bladder or bowel retention/incontinence, no perineal numbness/tingling, and ambulates independently. HPI: Ms. Dorado was last seen on 02/18/2022 via phone call regarding her smoking status and to review her progress. Since the time of the last appointment she does report that she stopped smoking on 01/28/2022, noting no issues with this. Aside from this she reports no changes to her symptoms, noting continued disability due to the severity of her symptoms. She reports that she did find 1 week of moderate relief with the Medrol Dosepak but otherwise no changes. Patient notes no significant improvements will all conservative modalities trialed thus far. Otherwise she states no f/c/sob/cp at this time. No trauma to the back, although she has had several falls on Ice over the past winter but no incidences where she noticed her back was any worse than now. Ms. Dorado was last seen on 02/02/2022 regarding an evaluation of her lumbar spine. Patient reports that over the past few years her back has become significantly more painful. Over the past month she has noted that she is now having pain shooting across her buttock region and down her legs which is new for her. She also states that it is becoming very difficult to walk distances and she cannot make it around the grocery store without leaning on the cart. She states this is also new in the past month to two months. She states no bowel or bladder issues. States no genital numbness/tingling but that her sex life has been affected significantly by this and that it is just not the same. She states also that she cannot take care of her children as well due to her back pain which is debilitating, her weakness and her difficulty with ADLs. She states she has tried therapy which made it worse. She has tried injections which did nothing and has had OTC as well as RX medications which have not he lped her get any better other than to mask some of the sx she is having at this time. She states as soon as she comes off of them it gets worse and that even Gabapentin seem to make her sx worse and the only thing that helps really is Aleve or Motrin. She states no f/c/sob/cp at this time. No trauma to the back, although she has had several falls on Ice over the past winter but no incidences where she noticed her back was any worse than now. The patients' past social, medical, family, surgical history, as well as review of systems, have been reviewed. Please refer to the Neurosurgery History and Physical form that has been scanned in to our electronic medical record system. 16 points review of systems completed and as stated in HPI, all other systems reviewed are negative. Social History: Reviewed, see appropriate section of the chart for details. P3 Social History: Smoking: former smoker P3 Alcohol: none P3 Family History: Reviewed, see appropriate section of the chart for details. P2 Past Medical History: Reviewed, see appropriate section of the chart for details. P1 Current Medications: Rx: atorvastatin 10 mg tablet Ref: 0 Rx: D3-2000 50 mcg (2,000 unit) capsule Ref: 0 Rx: DULoxetine HCl (bulk) 100 % powder Ref: 0 Rx: gabapentin 100 mg capsule Ref: 0 Rx: loratadine 10 mg disintegrating tablet Ref: 0 Rx: montelukast 10 mg tablet Ref: 0 Rx: naproxen 500 mg tablet Ref: 0 Rx: methylPREDNISolone 4 mg tablets in a dose pack Ref: 0 PHYSICAL EXAMINATION: General: Awake, alert, appropriate for age, in no acute distress. HEENT: No unusual neck masses around region of lateral neck triangle, thyroid, supraclavicular groove Heart: Regular rate and rhythm, normal S1, S2 and no murmur/gallop. Lungs: Clear to auscultation bilaterally with no use of accessory muscles. Extremities: Skin warm and dry without acute lesions, coloration, temperature, skin intact, no tenderness or erythema Integument: Hairy patches: ABSENT Dorsal skin dimples: ABSENT Cafe au lait spots: ABSENT Surgical incisions: none Palpation: Please see Pain drawing on Intake sheet for further detail. Midline spinal tenderness: Mild E6 Cervical Tenderness: No E6 Paralumbar tenderness: Yes. stepoff palpated L5-S1 E6 Parathoracic tenderness: No E6 Buttocks tenderness: No E6 POSTURAL and MUSCULO-SKELETAL EVALUATION: Coronal Balance: NEUTRAL Recumbent testing: Patient is able to lay flat on back Sagittal Balance: NEUTRAL Shoulder Profile: LEVEL Pelvic Girdle: LEVEL Neck ROM: UNRESTRICTED Lumbar ROM: RESTRICTED Shoulder ROM: Symmetrical Hip ROM: Symmetrical Knee ROM: Symmetrical Hands: Normal appearance, symmetrical Feet: Normal appearance, Symmetrical VASCULAR STATUS : LEFT RIGHT Wrist Pulses INTACT INTACT Pedal Pulses (Dors. pedis & post.tibialis) INTACT INTACT Color NORMAL NORMAL Edema Absent Absent NEUROLOGIC EXAMINATION: Mental Status:Awake and alert, fully oriented, with normal attention, concentration and memory, and fluent, appropriate speech. Cranial Nerves: I: Olfactory not tested. II: Visual acuity normal, no visual field deficit noted with confrontation. III,IV: Normal pupillary reflexes & intact extraocular movements without nystagmus. V,: Intact symmetrical facial sensation. VII: Intact symmetrical facial motor movement VIII: Hearing intact. IX,X: Intact gag, swallow, & normal voice. XI: Sternocleidomastoid, trapezius function intact. XII: Tongue midline with normal movements. L'hermitte's Sign: Negative / absent Spurling'Sign: Absent bilaterally. Cubital percussion test: Absent bilaterally. Bush-Tinel sign - Carpal region: Absent bilaterally. Straight Leg Raising: Absent bilaterally. Crossed straight leg raise: negative O8 MOTOR EXAM (0-5/5, N/T) STRENGTH RIGHT LEFT Shoulder Abd (not part of the QI score) 5 5 Elbow Flexors 5 5 Elbow Extensor 5 5 Wrist Dorsiflexors 5 5 Finger Abductor 5 5 Supervisor Brake Repair 5 5 Hip Flexor (Not part of QI Motor score) 5 4 Knee Flexor 5 4 Knee Extensor 5 4 Ankle dorsiflexor 5 4 Ankle plantarflexion 5 4 Extensor hallucis 5 4 REFLEXES(0-4/2, NT) RIGH T LEFT Upper Extremities 3 3 Lower Extremities 2 2 Pathological Reflexes RIGHT LEFT Bush's Absent Absent Clonus Absent Absent Babinski Absent Absent # Indicates mechanical impairment Muscle appearance: Symmetrical, without signs of atrophy or dystrophy. Sensory system (0-4, N/T) Test type RU MELISSA RL LL Joint-Position 2 2 2 2 Vibration 2 2 2 2 Pain & LT sense 2 2 2 2 Dermatomal Deficit: None None L4-5 L5 Gait and Functional Evaluation: Ambulatory aids: Independent Romberg's test: Intact bilaterally Toe heel walk / heel-toe walk intact while maintaining satisfactory balance? No Squatting/straightening w/o assistance to a min of 60 degree knee flexion? No Single leg stance: not intact on the left side Trendelenburg sign negative bilaterally Hand and finger dexterity intact bilaterally? yes Disdiadochokinesis examination negative bilaterally? yes RADIOGRAPHIC STUDIES: XRay taken on 02/02/22 of Lumbar Spine and Pelvis: These are reviewed in the office with the patient and demonstrate L5-S1 Grade III to Grade IV spondylolisthesis with spondylolysis of L5 b/l. There is severe deformity at this level with disc height loss, dessication and b/l foraminal stenosis. There is likely pars deficit with hypertrophy of the facet joints. There is loss of segmental lordosis at this level. There is mild L4-5 spondylosis noted with facet arthrosis. No other fractures noted. No lesions. AP pelvis shows congruent level pelvis no fracture MRI /2022 of Lumbar Spine: This is also reviewed in the office with patient. Redemonstration of the L5-S1 GIII to GIV spondylolisthesis spondylolysis with near optosis. There is severe disc dessication, as well as modic changes L5-S1 with facet bogginess, arthropathy, overgrowth and ligamental overgrowth. There is b/l foraminal stenosis that is severe L5-S1. Moderate central stenosis. There is L4-5 spondylosis with broad based disc bulge noted as well. No other fracture or lesions noted at this time. IMPRESSION: It was my pleasure to have seen and examined Gerri. I reviewed the patient's clinical syndrome, physical findings, and imaging studies during the appointment today. It is my impression that the patient has a diagnosis of. 1. L5-S1 grade 3- grade 4 spondylolisthesis with spondylolysis 2.Neurogenic claudication 3. bilateral lower extremity radiculopathy 4. bilateral lower extremity weakness .DX:Diagnosis: Spondylolisthesis, grade 3 : ICD10 = M43.10 / ICD9 = 738.4 / SNOMED = 65909781 .DX:Diagnosis: Level L5-S1 spondylolisthesis : ICD10 = M43.17 / ICD9 = 756.12 / SNOMED = 900035712 .DX:Diagnosis: Spondylolysis, lumbar region : ICD10 = M43.06 / ICD9 = 738.4 / SNOMED = .DX: Diagnosis:Diagnosis:Diagnosis:Diagnosis:Diagnosis:Diagnosis:Diagnosis: Spondylolysis, lumbar .DX:Diagnosis:Diagnosis: Spondylolysis, lumbar region : ICD9 = 738.4 / ICD10 = M43.06 / SNOMED = 86197768684707 : Diagnosis : Diagnosis : Diagnosis : Diagnosis : Diagnosis : Diagnosis : Spondylolysis, lumbar region : ICD9 = 738.4 / ICD10 = M43.06 / SNOMED = 40333360893406 : Diagnosis : Neurogenic claudication : ICD10 = G95.19 / ICD9 = 729.2 / SNOMED = [id number] .DX:Diagnosis: Muscle weakness of lower extremity : ICD10 = G83.10 / ICD9 = 728.87 / SNOMED = [id number] I outlined the natural course history without intervention and various interventional options. PLAN: Based on my findings I suggest the following course of action: - Based on the severity/instability of her pathology as well as her failure to improve with conservative modalities I discussed treatment options with the patient, including operative and non-operative options, and they have elected to proceed with the following surgical procedure: L4-S2 open decompression and fusion (98075, 62098, [id number], 76957, 78768, 70221) The indications, risks, benefits, and alternatives to surgery were discussed with the patient and family at length. Specifically (but not limited to) the risks of infection, stiffness, recurrence of symptoms, need for revision surgery, local numbness, neurovascular injury, and blood clots were discussed. The patient's questions were answered. The decision to proceed was made. Consent will be obtained for the procedure. -Advised patient to continue with supplements, health maintenance, and home exercise programs. Patient expressed understanding and will continue with these modalities. - SMOKING CESSATION FOLLOW UP The patient and I have discussed their current Stop Smoking plan and how the plan has been going. They state they have stopped since 02/04/2022 and that it is going well. They state they have noticed the effects of their plan and are happy with their progress. We discussed again their plan as well as the benefits of quitting. We have adjusted their plan as necessary, and the patient is comfortable with this. We will check back with them on our next visit to see how they are doing with this. Time Spent: 3-10 min Spine Surgery Risk Review Ms. Dorado is presenting for evaluation of low back pain. It was my pleasure to have seen and examined Ms. Dorado. In our visit today we have had a chance to go over subjective complaints, physical examination findings and treatments including the natural course history without intervention and various interventional options. The patients imaging demonstrates: XRay taken on 02/02/22 of Lumbar Spine and Pelvis: These are reviewed in the office with the patient and demonstrate L5-S1 Grade III to Grade IV spondylolisthesis with spondylolysis of L5 b/l. There is severe deformity at this level with disc height loss, dessication and b/l foraminal stenosis. There is likely pars deficit with hypertrophy of the facet joints. There is loss of segmental lordosis at this level. There is mild L4-5 spondylosis noted with facet arthrosis. No other fractures noted. No lesions. AP pelvis shows congruent level pelvis no fracture MRI [id number] of Lumbar Spine: This is also reviewed in the office with patient. Redemonstration of the L5-S1 GIII to GIV spondylolisthesis spondylolysis with near optosis. There is severe disc dessication, as well as modic changes L5-S1 with facet bogginess, arthropathy, overgrowth and ligamental overgrowth. There is b/l foraminal s tenosis that is severe L5-S1. Moderate central stenosis. There is L4-5 spondylosis with broad based disc bulge noted as well. No other fracture or lesions noted at this time. On physical exam, Ms. Dorado demonstrates severely restricted lumbar ROM with plapable stepoff at L5-S1. Patient demonstrates significant LLE radiculopathy and weakness. She has bilteral upper extremity hyperreflexia as well with RLE L4-L5 dermatomal deficit and LLE L5 dermatomal deficit. I have explained to the patient that as their condition progresses it will cause further neurological deficits and eventual paralysis. Based on the patients imaging, physical exam, and the rapid progression and disabling nature of their symptoms, at this time I recommend surgery in the form or a: L4-S2 open decompression and fusion (45846, 96920, 48066k1, 84091, 81262, 79906). I discussed the risk and benefits of this procedure at length with Ms. Dorado. The patient agreed to considered pursuing the procedure abovementioned. Prior to surgery, she should follow up with her PCP (Cardio, ID, IM etc) for clearance. Questions were invited and answered, and the patient wishes to proceed as outlined below. CT Lumbar spine: Grade II-III spondylolisthesis with b/l pars defects in L5 spondylolysis echos MRI exam. Full report in chart. Currently, I am recommendin. L4-S2 open decompression and fusion (94996, 90302, 12797c1, 24079,) 2.Follow up with PCP for surgical clearance 3.Review of surgical risks and benefits as well as an educational packet on the proposed surgical procedure. Risks: All surgical procedures come with inherent risks, including those related to positioning, anesthesia, intraoperative findings, and postoperative complications. It is important to understand that surgery does not come with any guarantee of a successful outcome as complications and adverse events are always possible. The patient was given a handout in office today discussing the surgical procedure and risks associated with the intervention, both of which were discussed with the patient. These risks include but are not limited to the following: * Experiencing same, different or even worse symptoms in back, neck, arms, or legs compared to before surgery. Requiring further surgery or other forms of treatment presently or at some time in the future at same or other levels of the intended spine surgery. On an extreme but fortunately relatively rare basis severe complication such as blindness, stroke, heart attack, temporary and/or permanent nerve injury, paralysis, coma, or may occur, sometimes without known explanation. Surgical complications may include but are not limited to risk of infection, fluid accumulation in the surgical dissection site, including a seroma or hematoma, that requires additional surgery, wound drainage, bleeding, new numbness or weakness, vision changes/loss, spinal fluid leakage, non-healing and/or infected incision, headaches, difficulty or inability to swallow, hoarseness, hemopneumothorax, pneumothorax, impotence, retrograde ejaculation, vaginal dryness; injury to nerves, spinal cord, blood vessels, lymphatics or other vital organs (i.e., bowel injury, injury to the great vessels); heterotopic bone formation; complications related to the hardware such as screws, rods, cages including misplaced hardware, device failure, instrum entation at the wrong spine level, hardware fracture/breakage, or hardware loosening; vertebral failure of the spinal column above or below the newly placed hardware; retained surgical instrumentations or devices and the need for further surgery. * Medical risks of the planned spine surgery include but are not limited to generalized Infections to the whole body or local areas outside of the surgical site (sepsis), heart attack, bleeding, anaphylaxis, meningitis, seizure, epilepsy, hearing loss, burn topete, laceration of the head or other areas of the body, bruising, hypersensitivity of the skin, bladder over distension; allergic reaction; shoulder injury related to positioning; fat, blood and air clots to other areas of the body like heart, lungs, brain; failure of internal organs such as lungs, kidneys, liver and excessive bleeding. If blood transfusions are necessary, note that transfusions may cause intolerance reactions such as anaphylaxis or other complex reactions. Despite best efforts, the results of spine surgery might not heal in terms of bone, soft tissues such as skin, fascia, ligaments, and joints. Additionally, in order to achieve best possible results, spine surgery may be carried out beyond the initially planned levels and involve decompression, fusion including insertion of hardware at levels other than the original intended area of surgical interest change some portions of the procedure in order to ensure the best possible outcomes. With spine surgery and spinal fusion, there are different off label uses of instrumentation (devices, implants and hardware) as well as biological substances (bone morphogenic proteins, demineralized bone matrix) as well as using extra bone from allograft sources (i.e. cadaver bone) or autograft (iliac crest bone, ribs, or the spine itself). The patient has been given information about these practices and their inherent risks and benefits. [facility] is an educational center that serves as a training facility for neurosurgical and orthopedic [employer] PROF[employer]OR and Nursing students. Physician assistants are medically trained surgical providers who function in the outpatient, inpatient, and operating room setting under the direct supervision of the attending surgeon. [facility] has multiple operating rooms with single and overlapping rooms running daily. They currently function under the required guidelines as produced by the [facility] Finance Committee with regards to the overlapping rooms and will continue to comply with changes to this policy as they occur. The requirements include and are complied with as follows: (1) the critical portions of the overlapping rooms will not occur at the same time, (2) the attending physician will be physically present during the critical portions of the procedure and immediately available during the entire case, and (3) a back-up attending is designated should the primary attending not be immediately available. The patient has had a chance to review all the listed information, has been given print outs detailing this information, and has had all his/her questions answered to their satisfaction. It was my pleasure to have seen and examined Ms. Dorado. In our visit today we have had a chance to go over my understanding of our patient's current condition, the natural course history without intervention and various interventional options. Questions were invited and answered, and the patient wishes to proceed as outlined above. I have seen and examined the patient for 25 minutes and we have spent more than 50% of the time in repeat and detailed counseling about the patient's condition, its natural course history with out and as much as can be predicted with surgery and re-review of various surgical treatment options. In conclusion, Ms. Dorado requested we proceed with the above suggested surgery and are willing to accept risks and limitations of the suggested surgery as nature of the disease process and our best attempts at treatment for the condition. Thank you again for allowing us to be part of your patient's care. Please don't hesitate to contact me if you have any further questions. Signed and authenticated by: Follow- up: Post procedure Patient Education: (Informational booklet, instructions, etc) given at today's appointment: Yes .ED:Patient Education: Y Plan at next visit: X-ray , review progress Medications Reviewed: YES In our visit today Ms. Dorado and I have had a chance to go over my understanding of the patient's current condition, the natural course history without intervention and various interventional options. Questions were invited and answered, and the patient wishes to proceed as outlined above. I will be sure to keep you updated afterMs. Dorado returns here for further follow-up. Thank you again for your referral. Please do not hesitate to contact me if you have any further questions. Signed and authenticated by: Librado Bailey [facility] [address] [facility], [address] [address] Past Medical History Past Medical History: GERD/Reflux, Hyperlipidemia, Sleep Apnea/CPAP/BIPAP Additional Past Medical History / Comment(s): PAST LT OVARIAN CYST,. NO LONGER USES C PAP MACHINE. SEASONAL ALLERGIES History of Any Multi-Drug Resistant Organisms: None Reported Past Surgical History: Section, Tonsillectomy Additional Past Surgical History / Comment(s): X3 C-SECTIONS Past Anesthesia/Blood Transfusion Reactions: No Reported Reaction Additional Past Anesthesia/Blood Transfusion Reaction / Comment(s): AGE 16 HAD BLOOD TRANSFUSION D/T BLEEDING DURING TONSILECTOMY Smoking Status: Former smoker - Past Family History Father History Unknown: Yes Mother Family Medical History: COPD, Hyperlipidemia Additional Family Medical History / Comment(s): ENPHYSEMA, OSTEOPOROSIS Medications and Allergies Home Medications Medication Instructions Recorded Confirmed Type Ascorbic Acid [Vitamin C] 2,000 mg PO DAILY 03/13/22 03/13/22 History Atorvastatin [Lipitor] 10 mg PO HS 03/13/22 03/13/22 History Calcium Carbonate [Calcium] 600 mg PO DAILY 03/13/22 03/13/22 History Cholecalciferol (Vitamin D3) 125 mcg PO DAILY 03/13/22 03/13/22 History [Vitamin D3 (125 MCG = 5,000 IU)] DULoxetine HCL [Cymbalta] 30 mg PO BID 03/13/22 03/13/22 History Gabapentin [Neurontin] 100 mg PO TID 03/13/22 03/13/22 History Montelukast [Singulair] 10 mg PO HS 03/13/22 03/13/22 History Allergies Allergy/AdvReac Type Severity Reaction Status Date / Time aspirin AdvReac WAS TOLD Verified 03/13/22 11:17 NOT TO TAKE R/T BLEEDS EASY bee venom protein (honey bee) AdvReac Swelling Verified 03/13/22 11:17 Physical Examination Osteopathic Statement: *. No significant issues noted on an osteopathic struct ural exam other than those noted in the History and Physical/Consult.
[~2022-03-17 10:35] MED LIST: ACETAMINOPHEN TAB 500 MG TAB PO PRN; DEXAMETHASONE SOD PHOSPHATE 4 MG/ML 1 ML VIAL IV ONE; GABAPENTIN 300 MG CAP PO PRN; HYDROmorphone 0.5 MG/0.5 ML SYRINGE IVP PRN; LACTATED RINGERS 1,000 ML IV SCH; LIDOCAINE 1% (10MG/ML) FOR IV START INTRADERMA PRN; METOCLOPRAMIDE 5 MG/ML 2 ML VIAL IVP PRN; ONDANSETRON 4 MG/2 ML VIAL IVP ONE
[2022-03-17 11:36] VITALS: BP 109/59; PULSE 82; RESP 18; TEMP 97.9
== END 2022-03-17 12:35 | disposition home or self-care (01) ==
LOC: OR 10:35 → UNDOADMIN 10:35 → 2ORMAIN 10:35 → EDSTATUS 12:30 → OR 12:35 → UNDODISIN 12:35
PROVIDERS: ATTEND Orthopaedic Surgery
DX: M43.16 Spondylolisthesis, lumbar region (principal); Z53.8 Procedure and treatment not carried out for other reasons
CPT/HCPCS: J1100; J2405; 86850; 86900; 86901

== ENCOUNTER 2022-03-19 08:22 | Inpatient (IN) | payer BC, OTHER ==
[2022-03-18 09:27] VITALS: BMI 33.6
[~2022-03-19 08:22] MED LIST changes: -HYDROmorphone 0.5 MG/0.5 ML SYRINGE IVP PRN; -LACTATED RINGERS 1,000 ML IV SCH; -LIDOCAINE 1% (10MG/ML) FOR IV START INTRADERMA PRN; -METOCLOPRAMIDE 5 MG/ML 2 ML VIAL IVP PRN; +TRANEXAMIC ACID IN NACL,ISO-OS 1,000 MG in SALINE 1 100ML.BAG IVPB PRN
[2022-03-19] MEDS: LACTATED RINGERS 1,000 ML IV SCH (08:36)
--- NOTE | 2022-03-19 09:26 | P.PN ---
Progress Note - Text Progress Note Date: 03/19/22 History and Physical UPDATE I have seen and examined the patient and reviewed the history and physical. There appear to be no significant changes in the patient's current medical status as outlined in the current History and Physical.
[2022-03-19] MEDS ORDERED: MIDAZOLAM 2 MG/2 ML VIAL IVP ONE (09:50)
[2022-03-19] MEDS ORDERED: TRANEXAMIC ACID IN NACL,ISO-OS 1,000 MG in SALINE 1 100ML.BAG IV STA (10:08)
[2022-03-19] MEDS ORDERED: TRANEXAMIC ACID 1,000 MG in SODIUM CHLORIDE 0.9% 250 ML IV STA (10:08)
--- NOTE | 2022-03-19 10:14 | P.ANPRN ---
Procedure Note - Anesthesia - Invasive Line Right Central Line Time Out Performed: Yes Date of Procedure: 03/19/22 Time of Procedure: 09:55 Location of Patient: PreOp Preparation: Sterile Prep, Sterile Dressing Ultrasound Used: No Purpose - Visualization and Identification of Vasculature: No Image Stored and Saved: No (right internal jugular) Narrative: Central line placement per sterile protocol utilized.
[2022-03-19] MEDS ORDERED: ROCURONIUM 10 MG/ML (5 ML VIAL) IV ONE (10:15)
[2022-03-19] MEDS ORDERED: SODIUM CHLORIDE 0.9% 100 ML BAG ONE (10:15)
[2022-03-19] MEDS ORDERED: HYDROmorphone (PF) 1 MG/ML ONE (10:15)
[2022-03-19] MEDS ORDERED: PROPOFOL 10 MG/ML 20 ML VIAL IV ONE (10:15)
[2022-03-19] MEDS ORDERED: LIDOCAINE 2% INJ 20 MG/ML (2 ML VIAL) ONE (10:15)
[2022-03-19] MEDS ORDERED: MIDAZOLAM 2 MG/2 ML VIAL ONE (10:15)
[2022-03-19] MEDS ORDERED: TRANEXAMIC ACID IN NACL,ISO-OS 1,000 MG/100 ML BAG ONE (10:15)
[2022-03-19] MEDS ORDERED: ONDANSETRON 4 MG/2 ML VIAL ONE (10:15)
[2022-03-19] MEDS ORDERED: NEOSTIGMINE 1 MG/ML 10 ML VIAL ONE (10:15)
[2022-03-19] MEDS ORDERED: GLYCOPYRROLATE 0.2 MG/ML 2 ML VIAL ONE (10:15)
[2022-03-19] MEDS ORDERED: fentaNYL (PF) 50 MCG/ML 2 ML AMP ONE (10:15)
[2022-03-19] MEDS ORDERED: SUCCINYLCHOLINE CHLORIDE 100 MG/5 ML SYR IV ONE (10:15)
[2022-03-19] MEDS ORDERED: ceFAZolin 1,000 MG VIAL ONE (10:15)
[2022-03-19] MEDS ORDERED: BUPIVACAINE (PF) 0.25% 30 ML VIAL SQ ONE ×2 (10:43→16:08)
[2022-03-19] MEDS ORDERED: GELATIN SPONGE,ABSORB (SMALL) 1 EACH SPONGE TOPICAL ONE (10:44)
[2022-03-19] MEDS ORDERED: THROMBIN (BOVINE) 5,000 UNIT VIAL TOPICAL ONE (10:44)
[2022-03-19] MEDS ORDERED: VANCOMYCIN 1,000 MG VIAL MISCELLANE ONE ×2 (10:44→16:08)
[2022-03-19] MEDS ORDERED: LACTATED RINGERS 1,000 ML IV ONE ×2 (10:57→11:03)
[2022-03-19] MEDS ORDERED: SENNOSIDES-DOCUSATE SODIUM 1 EACH TAB PO PRN (16:06)
[2022-03-19] MEDS ORDERED: HYDROcodone/APAP 5-325MG 1 EACH TAB PO PRN (16:06)
[2022-03-19] MEDS ORDERED: HYDROmorphone 0.5 MG/0.5 ML SYRINGE IVP PRN (16:06)
--- NOTE | 2022-03-19 16:22 | FL ---
Intraoperative fluoroscopic services were provided for internal fixation of a lumbar spine. Total flu oroscopy time is 1 minute 55 seconds with a total of 7 submitted images to PACS. Please see the opera tive note for further details.
--- NOTE | 2022-03-19 16:49 | P.PN ---
Progress Note - Text Progress Note Date: 03/19/22 Post op: Pt s/e in PACU she is stable. VSS. She is following commands but still groggy. She is moving all 4 ext with good strength. No issues currently. Dressing CDI. Drain with 20 cc. She will be transferred to the floor when awake and stable per PACU staff and anesthesia.
[2022-03-19] MEDS ORDERED: HYDROmorphone 0.5 MG/0.5 ML SYRINGE IVP ONE ×3 (17:03→18:00)
[2022-03-19] MEDS: MEPERIDINE 50 MG/ML SYRINGE IVP ONE ×2 (17:18→17:51)
[2022-03-19] MEDS ORDERED: diphenhydrAMINE 50 MG/ML 1 ML VIAL IVP ONE (17:37)
--- NOTE | 2022-03-19 18:06 | XR ---
EXAMINATION TYPE: XR chest 1V DATE OF EXAM: 03/19/2022 5:41 PM COMPARISON: Chest radiographs from 12/20/2017 TECHNIQUE: XR chest 1V Frontal view of the chest. CLINICAL INDICATION:Female, 41 years old with history of Confirm Line placement; FINDINGS: Lungs/Pleura: Low lung volumes. Bibasilar atelectasis. No evidence for pneumothorax pleural effusion or focal consolidation. Pulmonary vascularity: Unremarkable. Heart/mediastinum: Cardiomediastinal silhouette is enlarged and stable. Musculoskeletal: No acute osseous pathology. Other findings: None Lines/Tubes: Right internal jugular central venous catheter with distal tip at the cavoatrial junction. IMPRESSION: No acute cardiopulmonary disease/process.
[2022-03-19] MEDS: ACETAMINOPHEN TAB 325 MG TAB PO SCH ×2 (18:28→22:55)
--- NOTE | 2022-03-19 18:50 | P.CONS ---
History of Present Illness - Reason for Consult Consult date: 03/19/22 GERD Requesting physician: Librado Patton - Chief Complaint Back pain - History of Present Illness Patient is a 41-year-old female with known history of GERD, struck his sleep apnea, seasonal ALLERGIES and dyslipidemia who presented for elective L4 to S1 open decompression with fusion. She was having some postop pain and anesthesia requiring multiple doses of medications. Patient seen and examined at bedside. She only stays awake with repeated verbal or tactile stimulation. She reports that her pain is currently well controlled. She complains of being dry. She also complains of needing to urinate, we discussed multiple times that she is a Fajardo catheter in place. She denies any chest pain, shortness of breath, nausea, vomiting. She denies any recent cough, cold, fever, flu. She quit smoking approximately 6 weeks ago. She states she had issues tolerating a Fajardo catheter after her last . Pertinent positives and negatives as discussed in HPI, a complete review of systems was performed and all other systems are negative. Vital signs reviewed General: nontoxic, no distress, appears at stated age Derm: warm, dry Head: atraumatic, normocephalic, symmetric Eyes: EOMI, no lid lag, anicteric sclera, pupils equal round reactive to light ENT: Nose and ears atraumatic, no thrush, no pharyngeal erythema Neck: No thyromegaly, no cervical lymphadenopathy, trachea midline, supple Mouth: no lip lesion, mucus membranes moist Cardiovascular: S1S2 reg, no murmur, positive posterior tibial pulse bilateral, no edema, capillary refill less than 2 seconds Lungs: clear to auscultation bilateral, no rhonchi, no rales, no wheeze, no accessory muscle use Abdominal: soft, nontender to palpation, no guarding, no appreciable organomegaly, normal bowel sounds Ext: no gross muscle atrophy, muscle strength muscle strength 5 out of 5 in all 4 extremities, no contractures Neuro: CN II-XII grossly intact, light touch intact all 4 extremities, finger to nose within normal limits, Psych: Alert, oriented, appropriate affect Assessment/Plan: 41-year-old female status post L4 to S2 decompression - management per orthospine Dyslipidemia - resume statin Seasonal ALLERGIES - singulair Obesity wiht BMI 33.4 - structured outpatient weight loss Recent Tobacco abuse - encourage continued cessation Thank you for allowing us to participate in the care of this pleasant patient. Do not hesitate to contact us with questions. Someone can be reached from the [facility] hospitalist group all hours of the day at [phone] or via Denator. Past Medical History Past Medical History: GERD/Reflux, Sleep Apnea/CPAP/BIPAP Additional Past Medical History / Comment(s): PAST LT OVARIAN CYST. NO LONGER USES C-PAP. SEASONAL ALLERGIES History of Any Multi-Drug Resistant Organisms: None Reported Past Surgical History: Section, Tonsillectomy Additional Past Surgical History / Comment(s): X3 C-SECTIONS Past Anesthesia/Blood Transfusion Reactions: No Reported Reaction Additional Past Anesthesia/Blood Transfusion Reaction / Comm: AGE 16 HAD BLOOD TRANSFUSION D/T BLEEDING DURING TONSILECTOMY Smoking Status: Former smoker Past Alcohol Use History: None Reported Past Drug Use History: None Reported - Past Family History Father History Unknown: Yes Mother Family Medical History: COPD, Hyperlipidemia Additional Family Medical History / Comment(s): ENPHYSEMA, OSTEOPOROSIS Medications and Allergies Home Medications Medication Instructions Recorded Confirmed Type Ascorbic Acid [Vitamin C] 2,000 mg PO DAILY 03/13/22 03/19/22 History Atorvastatin [Lipitor] 10 mg PO HS 03/13/22 03/19/22 History Calcium Carbonate [Calcium] 600 mg PO DAILY 03/13/22 03/19/22 History Cholecalciferol (Vitamin D3) 125 mcg PO DAILY 03/13/22 03/19/22 History [Vitamin D3 (125 MCG = 5,000 IU)] DULoxetine HCL [Cymbalta] 30 mg PO BID 03/13/22 03/19/22 History Gabapentin [Neurontin] 100 mg PO TID 03/13/22 03/19/22 History Montelukast [Singulair] 10 mg PO HS 03/13/22 03/19/22 History Allergies Allergy/AdvReac Type Severity Reaction Status Date / Time aspirin AdvReac WAS TOLD Verified 03/19/22 09:06 NOT TO TAKE R/T BLEEDS EASY bee venom protein (honey bee) AdvReac Swelling Verified 03/19/22 09:06 Physical Exam Osteopathic Statement: *. No significant issues noted on an osteopathic structural exam other than those noted in the History and Physical/Consult. Vitals: Vital Signs Temp Pulse Pulse Resp BP BP Pulse Ox 03/19/22 18:32 97.6 F 76 17 129/85 97 03/19/22 18:14 86 18 166/54 100 03/19/22 18:02 116 H 18 167/79 100 03/19/22 17:45 89 18 141/63 100 03/19/22 17:38 79 159/79 03/19/22 17:31 98 18 161/101 100 03/19/22 17:15 78 18 149/70 100 03/19/22 17:01 91 18 155/94 100 03/19/22 16:43 97.3 F L 99 21 150/79 100 03/19/22 10:00 77 17 133/93 96 03/19/22 08:31 97.9 F 68 18 127/67 137/70 98 Intake and Output 03/19/22 03/19/22 03/19/22 06:59 14:59 22:59 Intake Total 2850 Output Total 1090 Balance 2850 -1090 Intake: IV 2850 Output: Urine 540 Estimated Blood Loss 550 Other: Weight 96.6 kg
[2022-03-19] MEDS: ATORVASTATIN 10 MG TAB PO SCH (20:52)
[2022-03-19] MEDS: CYCLOBENZAPRINE 5 MG TAB PO PRN (20:52)
[2022-03-19] MEDS: DEXAMETHASONE SOD PHOSPHATE 10 MG/ML 1 ML VIAL IVP SCH ×2 (20:52→22:55)
[2022-03-19] MEDS: MONTELUKAST 10 MG TAB PO SCH (20:53)
[2022-03-19] MEDS: HYDROcodone/APAP 10-325MG 1 EACH TAB PO PRN (20:53)
[2022-03-19] MEDS: GABAPENTIN 300 MG CAP PO SCH (20:53)
[2022-03-19] MEDS: DULoxetine HCL 30 MG CAPSULE.DR PO SCH (20:56)
[2022-03-19] MEDS: HYDROmorphone 1 MG/ML 1 ML SYRINGE IVP PRN (22:44)
--- NOTE | 2022-03-19 23:58 | CT ---
EXAMINATION TYPE: CT lumbar spine wo con DATE OF EXAM: 03/19/2022 COMPARISON: 03/07/2022 HISTORY: s/p L4-S2 Decompression-fusion CT DLP: 1613.6 mGycm Automated exposure control for dose reduction was used. Images obtained from T12 to S3 vertebra with no contrast. There is posterior fusion surgery from L4 to S1. There is 6 mm anterior subluxation of L5 in relation S1. Detail limited by the metal artifact. There is disc prosthesis at L4-5 and L5-S1. No compression fracture. No lumbar paraspinal mass. Spinal canal obscured significantly by metal artifact. There is a posterior drain noted at the L4-5 level. There is minimal soft tissue air consistent with recent s urgery in the subcutaneous fat. There is posterior skin rudy. IMPRESSION: Postsurgical changes. There is improvement in the L5-S1 spondylolisthesis compared to old exam. No de finite complicating process seen.
[2022-03-20] MEDS: HYDROcodone/APAP 10-325MG 1 EACH TAB PO PRN ×2 (03:18→08:15)
[2022-03-20] MEDS: DEXAMETHASONE SOD PHOSPHATE 10 MG/ML 1 ML VIAL IVP SCH ×3 (06:21→18:07)
[2022-03-20] MEDS: ACETAMINOPHEN TAB 325 MG TAB PO SCH ×3 (06:21→18:05)
[2022-03-20] MEDS ORDERED: HYDROmorphone 0.5 MG/0.5 ML SYRINGE IVP PRN (07:00)
[2022-03-20] MEDS: LACTATED RINGERS 1,000 ML IV SCH (08:03)
[2022-03-20] MEDS: DULoxetine HCL 30 MG CAPSULE.DR PO SCH ×2 (08:09→22:01)
[2022-03-20] MEDS: GABAPENTIN 300 MG CAP PO SCH ×3 (08:09→22:01)
--- NOTE | 2022-03-20 09:27 | P.PN ---
Subjective Progress Note Date: 03/20/22 Principal diagnosis: L5-S1 grade 3grade 4 spondylolisthesis with spondylosis -Neurogenic claudication -Bilateral lower extremity radiculopathy -Bilateral lower extremity weakness Patient was seen at bedside this morning resting comfortably lying in the left lateral recumbent position. Drain is in place at this time and intact. Surgical dressing is present over lumbar spine and is intact at this time. Patient says she did get up earlier this morning and felt okay walking to the bathroom. Patient says she is in a moderate amount of pain currently. Patient does mention that she thinks the Momence does not help very much for pain. Patient says she has been using the incentive spirometer every hour. Patient denies chest pain, fever, shortness of breath, nausea, vomiting, change in vision, loss of bowel/bladder control. Objective - Vital Signs Vital signs: Vital Signs Temp 98.5 F 03/20/22 08:00 Pulse 95 03/20/22 08:00 Resp 17 03/20/22 08:00 BP 100/60 03/20/22 08:00 Pulse Ox 92 L 03/20/22 08:00 FiO2 Intake & Output 03/19/22 03/20/22 03/20/22 18:59 06:59 18:59 Intake Total 2850 Output Total 1090 2120 Balance 1760 -2120 Weight 96.6 kg Intake: IV 2850 Output: Drainage 120 Lower Back 120 Urine 540 2000 Uretheral (Fajardo) 2000 Estimated Blood Loss 550 Other: Voiding Method Indwelling Catheter # Voids 3 # Bowel Movements 1 - Exam RENNY drain is intact at this time with 120 mL of output overnight. Dressing is present over the lumbar spine is intact. Patient has full sensation in bilateral upper and lower extremities. Patient has full range of motion bilateral upper extremities and right lower extremity. Patient does have some limited range of motion left lower extremity due to pain/weakness in hip flexion/extension knee flexion/extension. Motor is 5/5 in all major motor groups in bilateral upper extremities and right lower extremity. 4/5 in resisted hip flexion/extension and knee flexion/extension and plantar flexion/dorsiflexion in the left lower extremity. Adoption Manager strength 5/5 bilaterally. Neurovascular status is intact. Radial pulse intact, 2+ bilaterally. DP pulses palpable. Cap refill under 3 seconds in digits of upper extremities. Negative Homans bilaterally. Negative Trae's bilaterally. Assessment and Plan Assessment: 1. L5-S1 grade 3grade 4 spondylolisthesis with spondylosis; Neurogenic claudication; Bilateral lower extremity radiculopathy; Bilateral lower extremity weakness Postoperative day #1 status post L4-S2 decompression fusion Plan: 1. L5-S1 grade 3grade 4 spondylolisthesis with spondylosis; Neurogenic claudication; Bilateral lower extremity radiculopathy; Bilateral lower extremity weakness - surgery performed yesterday, , 03/19/2022 - L4-S2 decompression and fusion. Patient stable at bedside this morning. Postoperative computed tomography scan of lumbosacral spine does show postsurgical changes with hardware in stable position and well aligned. Dressing present over incision and appears to be intact at this time. 120 mL's output in drain overnight. We'll keep drain in at this time. LSO brace ordered. We'll continue to follow patient in hospital. Plan for discharge home Wednesday versus Wednesday. 2. Appreciate medical management 3. Pain management - Tylenol; Momence; Flexeril; gabapentin; Dilaudid only if necessary 4. GI prophylaxis - senna 5. DVT prophylaxis - mechanical 6. PT/OT - weightbearing as tolerated with LSO brace on while up and about and walker if needed 7. Encourage incentive spirometer use 8. Discharge planning - plan for home Wednesday versus Wednesday Time with Patient: Less than 30
[2022-03-20 10:46] LABS: Basophils # (A) 0.02 X 10*3/uL (0.00-0.10); Basophils % (A) 0.1 %; Eosinophils # (A) 0.01 X 10*3/uL (0.04-0.35); Eosinophils % (A) 0.1 %; HCT 37.7 % (37.2-46.3); Lymphocytes # (A) 0.63 X 10*3/uL (0.90-5.00); Lymphocytes % (A) 3.8 %; MCHC 31.8 g/dL (32.0-37.0); MCV 88.1 fL (80.0-97.0); Mean Platelet Volume 10.9 fL (9.5-12.2); NRBC Per 100 WBC 0 /100 WBCS (0.0-0.0); Neutrophils # (A) 14.76 X 10*3/uL (1.80-7.70); Platelet Count 231 X 10*3/uL (140-440); RBC 4.28 X 10*6/uL (4.10-5.20); RDW 14.3 % (11.5-14.5); WBC 16.58 X 10*3/uL (4.50-10.00)
[2022-03-20 10:58] LABS: African American GFR (CKD) 133.1 (60.0-200.0); BUN/Creat Ratio 15.33 Ratio (12.00-20.00); Blood Urea Nitrogen 9.2 mg/dL (9.0-27.0); Calcium 8.4 mg/dL (8.7-10.3); Non-African American GFR(CKD) 114.8 (60.0-200.0); Potassium 4.5 mmol/L (3.5-5.5)
--- NOTE | 2022-03-20 11:06 | P.PN ---
Subjective Progress Note Date: 03/20/22 Principal diagnosis: L5-S1 Grade II-III spondylolisthesis spondylolysis Pt s/e she is doing very well. She has been up and about and to bathroom. Boles taken out last night and she has voided on he own. No BM + flatus. Dressing CDI. Drain in place. She is states she feel pretty good. No f/c/sob/cp at this time. Objective - Vital Signs Vital signs: Vital Signs Temp 98.3 F 03/20/22 01:28 Pulse 87 03/20/22 01:28 Resp 20 03/20/22 01:28 BP 147/77 03/20/22 01:28 Pulse Ox 92 L 03/20/22 01:28 FiO2 Intake & Output 03/19/22 03/20/22 03/20/22 18:59 06:59 18:59 Intake Total 2850 Output Total 1090 2120 Balance 1760 -2120 Weight 96.6 kg Intake: IV 2850 Output: Drainage 120 Lower Back 120 Urine 540 2000 Uretheral (Boles) 2000 Estimated Blood Loss 550 Other: Voiding Method Indwelling Catheter # Voids 3 # Bowel Movements 1 - Exam Patient is alert and oriented 3 appears well-nourished well-hydrated is in no acute distress. They do not appear septic. On exam the patient has no tenderness to palpation of her thoracic or lumbar spine. There is no edema or ballottement sign. Lower extremities with 5/5 strength in all major muscle groups except dorsiflexion which is 4+ on the left but improving Upper extremities show 5/5 strength in all major muscle groups. 2/4DTR all UE and LE b/l Patient shows a negative Homans, Bush's, negative Babinski's negative clonus bilaterally. negative straight leg raise bilaterally. No tensioning signs. Cranial nerves II through XII are grossly intact. There is FROM that is painless of the b/l UE and LE in all major joints w/o pain. They are intact to light touch sensation in L2 to S1 nerve distribution. Patient has palpable dorsalis pedis was posterior tibial pulses. Compartments are soft and compressible. Incision is clean and dry drain has 50 mL and it currently - Labs CBC & Chem 7: 03/20/22 07:17 03/20/22 07:17 Assessment and Plan Assessment: 41-year-old female postoperative day 1 L4 to S1 decompression fusion with spondylolisthesis reduction Plan: -Appreciate direct sales consultant and team management. -Activity: Ambulate QID, OOB all meals, up and about, limit lifting bending twisting to less than 5 lbs. Use walker or cane if needed for stability. -Daily PT/OT, increase ambulation strength and balance. -Brace when up and about, not needed in bed or chair -Pain control: Adequate at this time -Meds: reviewed -GI ppx: senna, Miralax -DC boles when up and about, bedside commode if needed -DVT PPX: OK to restart Heparin tonight -Hygiene: Shower today. Maintain dressing clean and dry. Meticulous cleaning after BMs away from incision site -Drains: Maintain for now. Record output -Encourage IS 10x/hr -CT is reviewed hardware is in good position with good reduction L5-S1 spondylolisthesis with good alignment. -Dispo: Pending
[2022-03-20] MEDS ORDERED: HYDROcodone/APAP 10-325MG 1 EACH TAB PO PRN (11:10)
[2022-03-20] MEDS: HYDROcodone/APAP 7.5-325MG 1 EACH TAB PO PRN ×2 (12:52→18:06)
--- NOTE | 2022-03-20 15:32 | P.PN ---
Subjective Progress Note Date: 03/20/22 (donavon charting seen at 0945) Patient is a 41-year-old female with known history of GERD, struck his sleep apnea, seasonal ALLERGIES and dyslipidemia who presented for elective L4 to S1 open decompression with fusion. She was having some postop pain and anesthesia requiring multiple doses of medications. Patient seen and examined at bedside. Pain is not well-controlled she feels she is having early wear off of pain medications and they are in adequate. Eating and drinking well. Has been walking around. General: nontoxic, no distress, appears at stated age Derm: warm, dry Head: atraumatic, normocephalic, symmetric Eyes: EOMI, no lid lag, anicteric sclera Mouth: no lip lesion, mucus membranes moist Cardiovascular: S1S2 reg, no murmur, positive posterior tibial pulse bilateral, Lungs: CTA bilateral, no rhonchi, no rales , no accessory muscle use Abdominal: soft, nontender to palpation, no guarding, no appreciable organomegaly, Hemovac drain in place with sanguinous drainage Ext: no gross muscle atrophy, no edema, no contractures Neuro: CN II-XI grossly intact, no focal neuro deficits Psych: Alert, oriented, appropriate affect 41-year-old female status post L4 to S2 decompression - management per orthospine Leukocytosis, likely reactive - follow CBC - monitor for fevers Dyslipidemia - statin Seasonal ALLERGIES - singulair Obesity wiht BMI 33.4 - structured outpatient weight loss Recent Tobacco abuse - encourage continued cessation Thank you for allowing us to participate in the care of this pleasant patient. Do not hesitate to contact us with questions. Someone can be reached from the [facility] hospitalist group all hours of the day at [phone] or via perfect serve. Objective - Vital Signs Vital signs: Vital Signs Temp 98.5 F 03/20/22 08:00 Pulse 95 03/20/22 08:00 Resp 18 03/20/22 09:12 BP 100/60 03/20/22 08:00 Pulse Ox 92 L 03/20/22 08:00 FiO2 Intake & Output 03/19/22 03/20/22 03/20/22 18:59 06:59 18:59 Intake Total 2850 200 Output Total 1090 2120 Balance 1760 -2120 200 Weight 96.6 kg Intake: IV 2850 Oral 200 Output: Drainage 120 Lower Back 120 Urine 540 2000 Uretheral (Fajardo) 2000 Estimated Blood Loss 550 Other: Voiding Method Indwelling Catheter Indwelling Catheter # Voids 3 # Bowel Movements 1 1 - Labs CBC & Chem 7: 03/20/22 07:17 03/20/22 07:17 Labs: Abnormal Lab Results - Last 24 Hours (Table) 03/20/22 03/20/22 Range/Units 07:17 07:17 WBC 16.58 H (4.50-10.00) X 10*3/uL MCHC 31.8 L (32.0-37.0) g/dL Immature Gran # 0.16 H (0.00-0.04) X 10*3/uL Neutrophils # 14.76 H (1.80-7.70) X 10*3/uL Lymphocytes # 0.63 L (0.90-5.00) X 10*3/uL Eosinophils # 0.01 L (0.04-0.35) X 10*3/uL Glucose 176 H (70-110) mg/dL Calcium 8.4 L (8.7-10.3) mg/dL
[2022-03-20] MEDS: CYCLOBENZAPRINE 5 MG TAB PO PRN (18:06)
[2022-03-20] MEDS: MONTELUKAST 10 MG TAB PO SCH (22:01)
[2022-03-20] MEDS: ATORVASTATIN 10 MG TAB PO SCH (22:01)
[2022-03-21] MEDS: CYCLOBENZAPRINE 5 MG TAB PO PRN (00:27)
[2022-03-21] MEDS: HYDROcodone/APAP 7.5-325MG 1 EACH TAB PO PRN ×2 (00:27→08:04)
[2022-03-21] MEDS: ACETAMINOPHEN TAB 325 MG TAB PO SCH ×3 (00:28→11:59)
[2022-03-21] MEDS: DEXAMETHASONE SOD PHOSPHATE 10 MG/ML 1 ML VIAL IVP SCH ×2 (00:28→07:16)
[2022-03-21] MEDS: HYDROmorphone 1 MG/ML 1 ML SYRINGE IVP PRN (02:09)
[2022-03-21] MEDS: GABAPENTIN 300 MG CAP PO SCH (08:04)
[2022-03-21] MEDS: DULoxetine HCL 30 MG CAPSULE.DR PO SCH (08:04)
[2022-03-21 08:53] VITALS: BP 119/71; PULSE 90; RESP 15; TEMP 98.4
--- NOTE | 2022-03-21 09:36 | P.PN ---
Subjective Progress Note Date: 03/21/22 Principal diagnosis: L5-S1 Grade II-III spondylolisthesis spondylolysis Pt s/e she is doing very well. she is sitting up paying bills on computer this AM and eating breakfast. She states she has been getting up walked the halls, did stairs w/o issues. She is voiding appropriately has had BM and passing flatus. She states no perineal numbness/tingling. States he LE are doing better and she can move more and with better strength. She denies any other sx no f/c/sob/cp. Objective - Vital Signs Vital signs: Vital Signs Temp 98.4 F 03/21/22 08:00 Pulse 90 03/21/22 08:00 Resp 15 03/21/22 08:00 BP 119/71 03/21/22 08:00 Pulse Ox 92 L 03/21/22 08:00 FiO2 Intake & Output 03/20/22 03/21/22 03/21/22 18:59 06:59 18:59 Intake Total 900 Output Total 70 Balance 900 -70 Intake: Oral 900 Output: Drainage 70 Lower Back 70 Other: Voiding Method Indwelling Catheter Toilet # Voids 3 4 # Bowel Movements 1 - Exam Exam repeated today she is doing well LLE increasing in strength and is now near 5/5 in all aspects. She has intact sensation and palpable pulses. Incision is CDI Drain DC onl 20 cc in currently and 70 overnight Remainder of exam is stable. Patient is alert and oriented 3 appears well-nourished well-hydrated is in no acute distress. They do not appear septic. On exam the patient has no tenderness to palpation of her thoracic or lumbar spine. There is no edema or ballottement sign. Lower extremities with 5/5 strength in all major muscle groups except dorsiflexion which is 4+ on the left but improving Upper extremities show 5/5 strength in all major muscle groups. 2/4DTR all UE and LE b/l Patient shows a negative Homans, Bush's, negative Babinski's negative clonus bilaterally. negative straight leg raise bilaterally. No tensioning signs. Cranial nerves II through XII are grossly intact. There is FROM that is painless of the b/l UE and LE in all major joints w/o pain. They are intact to light touch sensation in L2 to S1 nerve distribution. Patient has palpable dorsalis pedis was posterior tibial pulses. Compartments are soft and compressible. Incision is clean and dry drain has 50 mL and it currently - Labs CBC & Chem 7: 03/20/22 07:17 03/20/22 07:17 Labs: Abnormal Lab Results - Last 24 Hours (Table) 03/20/22 03/20/22 Range/Units 07:17 07:17 WBC 16.58 H (4.50-10.00) X 10*3/uL MCHC 31.8 L (32.0-37.0) g/dL Immature Gran # 0.16 H (0.00-0.04) X 10*3/uL Neutrophils # 14.76 H (1.80-7.70) X 10*3/uL Lymphocytes # 0.63 L (0.90-5.00) X 10*3/uL Eosinophils # 0.01 L (0.04-0.35) X 10*3/uL Glucose 176 H (70-110) mg/dL Calcium 8.4 L (8.7-10.3) mg/dL Assessment and Plan Assessment: 41-year-old female postoperative day 2 L4 to S1 decompression fusion with spondylolisthesis reduction Plan: -Appreciate vocational rehabilitation consultant and team management. -Activity: Ambulate QID, OOB all meals, up and about, limit lifting bending twisting to less than 5 lbs. Use walker or cane if needed for stability. -Daily PT/OT, increase ambulation strength and balance. -Brace when up and about, not needed in bed or chair -Pain control: Adequate at this time -Meds: reviewed -GI ppx: senna, Miralax -DVT PPX: MEchanical, early ambulation, TEDs, SCDs, ASA -Hygiene: Shower daily, blot dry. -Drains: DC today -Encourage IS 10x/hr -Dispo: DC home today with [facility]
[2022-03-21] MEDS: LACTATED RINGERS 1,000 ML IV SCH (09:48)
--- NOTE | 2022-03-21 09:52 | P.DS ---
Providers Date of admission: 03/19/22 08:22 Expected date of discharge: 03/21/22 Attending physician: Librado Patton DO Consults: 03/19/22 16:12 Consult Physician Routine Consulting Provider: Annel Palma Consult Reason/Comments: Medical Management s/p L4-S2 decompression-fusion Do you want consulting provider notified?: Yes Primary care physician: Zelalem Pablo [facility] Course: Date of admission: 03/19/2022 Date of discharge: 03/21/2022 Admission diagnosis: L5-S1 grade 3grade 4 spondylolisthesis with spondylosis -Neurogenic claudication -Bilateral lower extremity radiculopathy -Bilateral lower extremity weakness Discharge diagnosis: Same Attending physician: Dr. Patton Surgical procedures: L2-S1 decompression and fusion Brief history: Patient is a 41-year-old female with a history of L5-S1 grade 3grade 4 spondylolisthesis with spondylolysis; neurogenic claudication; bilateral lower extremity radiculopathy; bilateral lower extremity weakness. At this point patient has failed conservative treatment measures and has opted to proceed with a elective L2-S1 decompression and fusion. Hospital course: Details of patient's surgery can be found in operative report. Patient tolerated the procedure well and was subsequently transported to orthopedic floor. Patient's orthopeidc and medical care was provided daily. Patient had daily laboratory tests performed for evaluation of overall blood counts. Patient had daily physical therapy to include strengthening range of motion as well as education with walker ambulation. Patient was noted to have a relatively uneventful postoperative course. Patient reported satisfactory pain control with oral pain medications by postoperative day 2. Patient showed satisfactory progress with physical therapy. Patient moved steadily through the program and had no difficulty meeting the goals by postoperative day 2. Given patient's otherwise satisfactory course and having met physical therapy goals, plan is to discharge patient home with health services on postoperative day 2. Discharge condition/disposition: Patient will be discharged home with health ser vices in stable condition. Discharge medications: Instructions are given on resumption of patient's normal daily medications per primary care recommendation, in addition patient will be prescribed Noble 7.5 mg/325 mg; Flexeril 10 mg; gabapentin 300 mg; Duricef; senna. Spine Discharge and Recovery Instructions Date of Surgery: 03/19/2022 Diagnosis: L5-S1 grade 3grade 4 spondylolisthesis with spondylosis -Neurogenic claudication -Bilateral lower extremity radiculopathy -Bilateral lower extremity weakness Procedure: L2-S1 decompression and fusion Medications: See medication list All medication refills should be obtained through your primary care doctor or your clinic spine surgeon. Please discuss prescription refills at your follow up appointment. Do not call the hospital for medication refills. Dressing: Leave your dressing in place for a total of 5 days post operatively. Then you may remove your dressing and leave open to air. Keep the area clean and if not able to keep area clean, then cover with sterile gauze and tape. Showering: You may shower 3 days after your procedure allowing soap and water to run over incision. Do not scrub. Do not soak. Blot dry. Follow up: Please confirm a follow up appointment with your surgeon 3 weeks post operatively. Please make an appointment to follow up with your PCP in 1-2 weeks after hutton rgery for evaluation 3 phase, 3-week plan POST OP WEEKS 1-3 1. Lifting/carrying/pushing/pulling limited to less than 5 pounds. 2. Do not sit for longer than 15 minutes at one time. Get up and walk around. Prolonged sitting is NOT advised. If you lay down, see if you can tolerate laying down on you front (belly side) 3. Walk for periods of 15 minutes = 1 mile but no longer; do it multiple times times each day. 4. Ice your low back after activity. POST OP WEEKS 3-6 1. Lifting limited to less than 20 pounds. 2. Do not sit for longer than 30 minutes at a time. Frequently change positions. Use a sit-to stand workstation or take frequent breaks from sitting if you have returned to work. 3. Walk for 30 minutes each day. If possible, do these three or more times a day POST OP WEEKS 6+ At your 6-week appointment we will give you a physical therapy referral to focus on a core stabilization and strengthening program. You should also work on leg & buttock strengthening, hamstring & quadriceps stretching, and continue a low impact aerobic activity program such as swimming, walking, or riding a stationary bicycle. During the initial 6 weeks after your surgery, you are at the highest risk of re-injuring your spine. You should generally avoid BLTs (bending, lifting and twisting combination motions) and follow the above guidelines to reduce the chance of reinjury. You can anticipate post op appointments in our office at approximately 3 weeks and 6 weeks after your surgery. INCISION CARE: If your incision is not draining you do NOT need to cover it with a dressing. Keep your incision clean, dry and intact. In most cases, we apply skin glue, rudy or sutures to the incision at the time of surgery. This will be like a crust or have the appearance of a scab and will fall off in time on its own. The stitches or rudy need to be removed at 3 weeks post op appointment. You may begin to shower 3 days after surgery (this allows the glue to pearson well). However, please avoid scrubbing the incision site or peeling off any of the skin glue. This will ensure optimal healing of your incision. Also, during this time avoid soaking the incision area in water - this includes swimming pools, hot tubs or baths. No ointments, lotions or oils on the incision until your surgeon allows. Leave rudy, sutures or glue in place. Neurological dysfunction that comes on suddenly can also be a sign of a stroke. Below some common symptoms of a stroke are listed: B - balance difficulty such as sudden onset walking or leaning to one side - NEW E - eye problem such as sudden double vision or trouble seeing on one side - NEW F - Facial weakness or numbness on one side - NEW A - Arm or leg weakness or numbness on one side - NEW S - Slurred speech or difficulty with word finding - NEW T - Time is BRAIN! Call 911 as soon as you recognize these symptoms Diet: Consume a regular diet rich in vegetables and lean protein such as chicken or fish. You should consume in a ratio of approximately 20% fats|40% carbohydrates|40%protein. Vegetables, sweet potatoes, brown rice or quinoa are examples of good carbohydrates. Chips, white bread, cookies and sweets/sugar are examples of bad carbohydrates. Limit your bad carbs, go wild with good carbs. "Life's Simple 7" Guidelines as per [place] [employer] These will help you reclaim your life after surgery and library helper in your recovery, keeping in mind your restrictions. (1) Get Active. Physical activity can help people lose weight, control high blood pressure and cholesterol, feel emotionally better, and sleep better. (2) Control Cholesterol. Avoid a diet high in saturated fat, trans fat, & cholesterol. Limit whole milk & cream, ice cream, butter, egg yolks, processed meats (like sausage and hot dogs), and fatty meats. Choose healthy foods that are low in saturated fat, trans fat and cholesterol which include: Fruits and vegetables, fiber rich grain products (like whole grain pasta and brown rice), lean meat such as chicken, fish, nuts, seeds, and legumes. (3) Eat Better. Eat small portions. Shop at the grocery with a list and do not stray from it. Tips for a healthy diet include: Limit sodium intake to less than 1500mg daily, avoid prepackaged, processed, and fast foods, choose a diet rich in fruits, vegetables, and whole grain, high fiber foods, and limit saturated & cholesterol in your diet. (4) Manage Blood Pressure. If you have high blood pressure, you should have a cuff at home so that you can check your blood pressure regularly. Be sure you have a good cuff. An arm one is generally better than a wrist one. Bring the cuff to a doctor's appointment to validate that the measurements that your cuff are taking are accurate. Take your blood pressure twice daily when you are sitting down and relaxing. Record the numbers in a log and bring this log with you to your doctors' appointments. (5) Lose Weight if your BMI is above 25. A healthy BMI is between 19-25. To calculate Your BMI, you may use a Standard BMI Calculator on the NIH BMI website: <www.nhlbi.nih.gov/guidelines/obesity/BMI/bmicalc.htm>. Weigh oneself daily. If you are overweight, set a goal to lose weight. A pound a week loss if needed is a good target. (6) Reduce Blood Sugar. Limit foods and liquids with "added sugars." (Added sugars include sucrose, fructose, glucose, maltose, dextrose, high fructose corn syrup, corn syrup, concentrated fruit juice and honey). (7) Stop Smoking. If you smoke, quitting smoking is one of the best things that you can do for your health. Smoking increases your risk of heart attack, stroke, and peripheral vascular disease, which is a build-up of plaque in your arteries. Please discard all the cigarettes and lighters in your house. Have a plan for what you will do when you have the urge to smoke. Direct and second- hand smoke shortens your life as well as the lives of your family, friends and others around you. For your health and the health of those around you, please consider quitting! Proper Bending Body Mechanics: Maintain a wide stance with one foot slightly in front of the other. Keep your back straight. Bend utilizing the strength in your hips and knees. Do not bend at the waist. Maintain the lifted object at your waist-level close to your body. Avoid lifting weight that causes immediately pain or pain anywhere in the body afterwards. Smoking/Nicotine If there was ever one thing that you could do to increase your overall health, decrease your risk of cardiovascular problems by about 39% the second you make the choice, it is to STOP SMOKING. Your body's most instant gratification is the second you stop smoking. We have all heard the studies, read the articles but it is true, smoking is extremely bad for your overall health, and moreover it is detrimental to your bone health. Nicotine, IN ANY FORM, kills bone cells, prevents your body from healing fractures, and significantly prolongs healing after surgery. In spine surgery specifically, it increases your risk of not healing your bones to create a fusion and increases your risk of having a revision surgery due to this up to 60%. I know it is hard. I know it feels impossible. But there are ways. Take control of your life. We are here to help you through it. And when you are ready, ask us and we can direct you to help if you desire. Use the START Plan to Quit Smoking (please visit the Helpguide.org website listed below for more information): S = Set a quit date. Choose a date within the next 2 weeks, so you have enough time to prepare without losing your motivation to quit. If you mainly smoke at work, quit on the weekend, so you have a few days to adjust to the change. T = Tell family, friends, and co-workers that you plan to quit. Let your friends and family in on your plan to quit smoking and tell them you need their support and encouragement to stop. Look for a quit joanna who wants to stop smoking as well. You can help each other get through the rough times. A = Anticipate and plan for the challenges you'll face while quitting. Most people who begin smoking again do so within the first 3 months. You can help yourself make it through by preparing ahead for common challenges, such as nicotine withdrawal and cigarette cravings. R = Remove cigarettes and other tobacco products from your home, car, and work. Throw away all your cigarettes (no emergency pack!), lighters, ashtrays, and matches. Wash your clothes and freshen up anything that smells like smoke. Shampoo your car, clean your drapes and carpet, and steam your furniture. T = Talk to your doctor about getting help to quit. Your doctor can prescribe medication to help with withdrawal and suggest other alternatives. If you can't see a doctor, you can get many products over the counter at your local pharmacy or grocery store, including the nicotine patch, nicotine lozenges, and nicotine gum. Resources for Quitting Smoking: <https://www.[place].gov/documents/[facility]/Quit_Tobacco_Resources_for_patients_313 480_7.pdf> Supplementation: Take recommended dosages of Vitamin D and Calcium to help fortify your bones and help them to heal. See your health maintenance packet for dosages and recommended levels. DVT/VTE prophylaxis: You will be given compression stockings from the hospital. Wear these daily for the first two weeks after surgery. You may take them off at night. You may be prescribed a medication to help thin your blood. Take this as directed. If you are not prescribed this medication, early and frequent ambulation has been shown to be the best prophylaxis to deep vein thrombosis and sequelae related to this event. Assessment: L5-S1 grade 3grade 4 spondylolisthesis with spondylosis -Neurogenic claudication -Bilateral lower extremity radiculopathy -Bilateral lower extremity weakness Procedures: L2-S1 decompression fusion Patient Condition at Discharge: Good Plan - Discharge Summary Discharge Rx Participant: No New Discharge Prescriptions: New Gabapentin [Neurontin] 300 mg PO TID #36 cap cefaDROXiL [Duricef] 500 mg PO Q12HR 5 Days #10 cap HYDROcodone/APAP 7.5-325MG [Noble 7.5] 1 - 2 each PO Q6HR PRN #42 tab PRN Reason: Pain Cyclobenzaprine [Flexeril] 10 mg PO TID #28 tab Sennosides/Docusate Sodium [Senna Plus 8.6-50 mg Softgel] 1 each PO DAILY #20 cap No Action DULoxetine HCL [Cymbalta] 30 mg PO BID Gabapentin [Neurontin] 100 mg PO TID Montelukast [Singulair] 10 mg PO HS Cholecalciferol (Vitamin D3) [Vitamin D3 (125 MCG = 5,000 IU)] 125 mcg PO DAILY Atorvastatin [Lipitor] 10 mg PO HS Calcium Carbonate [Calcium] 600 mg PO DAILY Ascorbic Acid [Vitamin C] 2,000 mg PO DAILY Discharge Medication List Ascorbic Acid [Vitamin C] 2,000 mg PO DAILY 03/13/22 [History] Atorvastatin [Lipitor] 10 mg PO HS 03/13/22 [History] Calcium Carbonate [Calcium] 600 mg PO DAILY 03/13/22 [History] Cholecalciferol (Vitamin D3) [Vitamin D3 (125 MCG = 5,000 IU)] 125 mcg PO DAILY 03/13/22 [History] DULoxetine HCL [Cymbalta] 30 mg PO BID 03/13/22 [History] Gabapentin [Neurontin] 100 mg PO TID 03/13/22 [History] Montelukast [Singulair] 10 mg PO HS 03/13/22 [History] Cyclobenzaprine [Flexeril] 10 mg PO TID #28 tab 03/21/22 [Rx] Gabapentin [Neurontin] 300 mg PO TID #36 cap 03/21/22 [Rx] HYDROcodone/APAP 7.5-325MG [Noble 7.5] 1 - 2 each PO Q6HR PRN #42 tab 03/21/22 [Rx] Sennosides/Docusate Sodium [Senna Plus 8.6-50 mg Softgel] 1 each PO DAILY #20 cap 03/21/22 [Rx] cefaDROXiL [Duricef] 500 mg PO Q12HR 5 Days #10 cap 03/21/22 [Rx] Follow up Appointment(s)/Referral(s): [facility], [NON-STAFF] - ([facility] will contact you to arrange a visit) Librado Patton DO [Doctor of Osteopathic Medicine] - 2 Weeks [facility]ins [NON-STAFF] - 1 Week (LSO brace) Patient Instructions/Handouts: Lumbar Spinal Fusion (DC), Lumbar Spinal Fusion (GEN) Activity/Diet/Wound Care/Special Instructions: Spine Discharge and Recovery Instructions Date of Surgery: 03/19/2022 Diagnosis: L5-S1 grade 3grade 4 spondylolisthesis with spondylosis -Neurogenic claudication -Bilateral lower extremity radiculopathy -Bilateral lower extremity weakness Procedure: L2-S1 decompression and fusion Medications: See medication list All medication refills should be obtained through your primary care doctor or your clinic spine surgeon. Please discuss prescription refills at your follow up appointment. Do not call the hospital for medication refills. Dressing: Leave your dressing in place for a total of 5 days post operatively. Then you may remove your dressing and leave open to air. Keep the area clean and if not able to keep area clean, then cover with sterile gauze and tape. Showering: You may shower 3 days after your procedure allowing soap and water to run over incision. Do not scrub. Do not soak. Blot dry. Follow up: Please confirm a follow up appointment with your surgeon 3 weeks post operatively. Please make an appointment to follow up with your PCP in 1-2 weeks after surgery for evaluation 3 phase, 3-week plan POST OP WEEKS 1-3 1. Lifting/carrying/pushing/pulling limited to less than 5 pounds. 2. Do not sit for longer than 15 minutes at one time. Get up and walk around. Prolonged sitting is NOT advised. If you lay down, see if you can tolerate laying down on you front (belly side) 3. Walk for periods of 15 minutes = 1 mile but no longer; do it multiple times times each day. 4. Ice your low back after activity. POST OP WEEKS 3-6 1. Lifting limited to less than 20 pounds. 2. Do not sit for longer than 30 minutes at a time. Frequently change positions. Use a sit-to stand workstation or take frequent breaks from sitting if you have returned to work. 3. Walk for 30 minutes each day. If possible, do these three or more times a day POST OP WEEKS 6+ At your 6-week appointment we will give you a physical therapy referral to focus on a core stabilization and strengthening program. You should also work on leg & buttock strengthening, hamstring & quadriceps stretching, and continue a low impact aerobic activity program such as swimming, walking, or riding a stationary bicycle. During the initial 6 weeks after your surgery, you are at the highest risk of re-injuring your spine. You should generally avoid BLTs (bending, lifting and twisting combination motions) and follow the above guidelines to reduce the chance of reinjury. You can anticipate post op appointments in our office at approximately 3 weeks and 6 weeks after your surgery. INCISION CARE: If your incision is not draining you do NOT need to cover it with a dressing. Keep your incision clean, dry and intact. In most cases, we apply skin glue, rudy or sutures to the incision at the time of surgery. This will be like a crust or have the appearance of a scab and will fall off in time on its own. The stitches or rudy need to be removed at 3 weeks post op appointment. You may begin to shower 3 days after surgery (this allows the glue to pearson well). However, please avoid scrubbing the incision site or peeling off any of the skin glue. This will ensure optimal healing of your incision. Also, during this time avoid soaking the incision area in water - this includes swimming pools, hot tubs or baths. No ointments, lotions or oils on the incision until your surgeon allows. Leave rudy, sutures or glue in place. Neurological dysfunction that comes on suddenly can also be a sign of a stroke. Below some common symptoms of a stroke are listed: B - balance difficulty such as sudden onset walking or leaning to one side - NEW E - eye problem such as sudden double vision or trouble seeing on one side - NEW F - Facial weakness or numbness on one side - NEW A - Arm or leg weakness or numbness on one side - NEW S - Slurred speech or difficulty with word finding - NEW T - Time is BRAIN! Call 911 as soon as you recognize these symptoms Diet: Consume a regular diet rich in vegetables and lean protein such as chicken or fish. You should consume in a ratio of approximately 20% fats|40% carbohydrates|40%protein. Vegetables, sweet potatoes, brown rice or quinoa are examples of good carbohydrates. Chips, white bread, cookies and sweets/sugar are examples of bad carbohydrates. Limit your bad carbs, go wild with good carbs. "Life's Simple 7" Guidelines as per [place] [employer] These will help you reclaim your life after surgery and library helper in your recovery, keeping in mind your restrictions. (1) Get Active. Physical activity can help people lose weight, control high blood pressure and cholesterol, feel emotionally better, and sleep better. (2) Control Cholesterol. Avoid a diet high in saturated fat, trans fat, & cholesterol. Limit whole milk & cream, ice cream, butter, egg yolks, processed meats (like sausage and hot dogs), and fatty meats. Choose healthy foods that are low in saturated fat, trans fat and cholesterol which include: Fruits and vegetables, fiber rich grain products (like whole grain pasta and brown rice), lean meat such as chicken, fish, nuts, seeds, and legumes. (3) Eat Better. Eat small portions. Shop at the grocery with a list and do not stray from it. Tips for a healthy diet include: Limit sodium intake to less than 1500mg daily, avoid prepackaged, processed, and fast foods, choose a diet rich in fruits, vegetables, and whole grain, high fiber foods, and limit saturated & cholesterol in your diet. (4) Manage Blood Pressure. If you have high blood pressure, you should have a cuff at home so that you can check your blood pressure regularly. Be sure you have a good cuff. An arm one is generally better than a wrist one. Bring the cuff to a doctor's appointment to validate that the measurements that your cuff are taking are accurate. Take your blood pressure twice daily when you are sitting down and relaxing. Record the numbers in a log and bring this log with you to your doctors' appointments. (5) Lose Weight if your BMI is above 25. A healthy BMI is between 19-25. To calculate Your BMI, you may use a Standard BMI Calculator on the NIH BMI website: <www.nhlbi.nih.gov/guidelines/obesity/BMI/bmicalc.htm>. Weigh oneself daily. If you are overweight, set a goal to lose weight. A pound a week loss if needed is a good target. (6) Reduce Blood Sugar. Limit foods and liquids with "added sugars." (Added sugars include sucrose, fructose, glucose, maltose, dextrose, high fructose corn syrup, corn syrup, concentrated fruit juice and honey). (7) Stop Smoking. If you smoke, quitting smoking is one of the best things that you can do for your health. Smoking increases your risk of heart attack, stroke, and peripheral vascular disease, which is a build-up of plaque in your arteries. Please discard all the cigarettes and lighters in your house. Have a plan for what you will do when you have the urge to smoke. Direct and second- hand smoke shortens your life as well as the lives of your family, friends and others around you. For your health and the health of those around you, please consider quitting! Proper Bending Body Mechanics: Maintain a wide stance with one foot slightly in front of the other. Keep your back straight. Bend utilizing the strength in your hips and knees. Do not bend at the waist. Maintain the lifted object at your waist-level close to your body. Avoid lifting weight that causes immediately pain or pain anywhere in the body afterwards. Smoking/Nicotine If there was ever one thing that you could do to increase your overall health, decrease your risk of cardiovascular problems by about 39% the second you make the choice, it is to STOP SMOKING. Your body's most instant gratification is the second you stop smoking. We have all heard the studies, read the articles but it is true, smoking is extremely bad for your overall health, and moreover it is detrimental to your bone health. Nicotine, IN ANY FORM, kills bone cells, prevents your body from healing fractures, and significantly prolongs healing after surgery. In spine surgery specifically, it increases your risk of not healing your bones to create a fusion and increases your risk of having a revision surgery due to this up to 60%. I know it is hard. I know it feels impossible. But there are ways. Take cont rol of your life. We are here to help you through it. And when you are ready, ask us and we can direct you to help if you desire. Use the START Plan to Quit Smoking (please visit the Helpguide.org website listed below for more information): S = Set a quit date. Choose a date within the next 2 weeks, so you have enough time to prepare without losing your motivation to quit. If you mainly smoke at work, quit on the weekend, so you have a few days to adjust to the change. T = Tell family, friends, and co-workers that you plan to quit. Let your friends and family in on your plan to quit smoking and tell them you need their support and encouragement to stop. Look for a quit joanna who wants to stop smoking as well. You can help each other get through the rough times. A = Anticipate and plan for the challenges you'll face while quitting. Most people who begin smoking again do so within the first 3 months. You can help yourself make it through by preparing ahead for common challenges, such as nicotine withdrawal and cigarette cravings. R = Remove cigarettes and other tobacco products from your home, car, and work. Throw away all your cigarettes (no emergency pack!), lighters, ashtrays, and matches. Wash your clothes and freshen up anything that smells like smoke. Shampoo your car, clean your drapes and carpet, and steam your furniture. T = Talk to your doctor about getting help to quit. Your doctor can prescribe medication to help with withdrawal and suggest other alternatives. If you can't see a doctor, you can get many products over the c ounter at your local pharmacy or grocery store, including the nicotine patch, nicotine lozenges, and nicotine gum. Resources for Quitting Smoking: <https://www.[place].gov/documents/[facility]/Quit_ Tobacco_Resources_for_patients_313480_7.pdf> Supplementation: Take recommended dosages of Vitamin D and Calcium to help fortify your bones and help them to heal. See your health maintenance packet for dosages and recommended levels. DVT/VTE prophylaxis: You will be given compression stockings from the hospital. Wear these daily for the first two weeks after surgery. You may take them off at night. You may be prescribed a medication to help thin your blood. Take this as directed. If you are not prescribed this medication, early and frequent ambulation has been shown to be the best prophylaxis to deep vein thrombosis and sequelae related to this event. Discharge Disposition: HOME WITH HOME HEALTH SERVICES
[2022-03-21 10:17] LABS: HCT 35.4 % (34.0-46.0); HGB 11.4 gm/dL (11.4-16.0); MCH 29.4 pg (25.0-35.0); MCHC 32.1 g/dL (31.0-37.0); MCV 91.4 fL (80.0-100.0); Mean Platelet Volume 7.9; Platelet Count 188 k/uL (150-450); RBC 3.87 m/uL (3.80-5.40); RDW 14.5 % (11.5-15.5); WBC 17.2 k/uL (3.8-10.6)
--- NOTE | 2022-03-21 15:34 | P.PN ---
Subjective Progress Note Date: 03/21/22 (delayed charting seen at 0955) Patient is a 41-year-old female with known history of GERD, struck his sleep apnea, seasonal ALLERGIES and dyslipidemia who presented for elective L4 to S1 open decompression with fusion. She was having some postop pain and anesthesia requiring multiple doses of medications. Patient seen and examined at bedside. Well. Has been up and walking around. Pain is well controlled and increased [place] helped. General: nontoxic, no distress, appears at stated age Derm: warm, dry Head: atraumatic, normocephalic, symmetric Eyes: EOMI, no lid lag, anicteric sclera Mouth: no lip lesion, mucus membranes moist Cardiovascular: S1S2 reg, no murmur, positive posterior tibial pulse bilateral, Lungs: CTA bilateral, no rhonchi, no rales , no accessory muscle use Abdominal: soft, nontender to palpation, no guarding, no appreciable organomegaly, Ext: no gross muscle atrophy, no edema, no contractures Neuro: CN II-XI grossly intact, no focal neuro deficits Psych: Alert, oriented, appropriate affect 41-year-old female status post L4 to S2 decompression - management per orthospine Leukocytosis, likely reactive - follow CBC - Repeat CBC in 7 days as outpatient., Patient has had leukocytosis after other surgeries. We'll follow up with primary for this. Lab orders written and given to patient. Instructions placed on discharge to add. Dyslipidemia - statin Seasonal ALLERGIES - singulair Obesity wiht BMI 33.4 - structured outpatient weight loss Recent Tobacco abuse - encourage continued cessation Medically optimized for discharge. Home medications addressed on discharge but record. Thank you for allowing us to participate in the care of this pleasant patient. Do not hesitate to contact us with questions. Someone can be reached from the [facility] hospitalist group all hours of the day at [phone] or via [employer]. Objective - Vital Signs Vital signs: Vital Signs Temp 98.4 F 03/21/22 08:00 Pulse 90 03/21/22 08:00 Resp 15 03/21/22 08:00 BP 119/71 03/21/22 08:00 Pulse Ox 92 L 03/21/22 08:00 FiO2 Intake & Output 03/20/22 03/21/22 03/21/22 18:59 06:59 18:59 Intake Total 900 Output Total 70 Balance 900 -70 Intake: Oral 900 Output: Drainage 70 Lower Back 70 Other: Voiding Method Indwelling Catheter Toilet # Voids 3 4 # Bowel Movements 1 - Labs CBC & Chem 7: 03/21/22 09:51 03/20/22 07:17 Labs: Abnormal Lab Results - Last 24 Hours (Table) 03/21/22 Range/Units 09:51 WBC 17.2 H (3.8-10.6) k/uL
--- NOTE | 2022-03-25 12:58 | P.OP ---
Date of Procedure: 03/19/22 Preoperative Diagnosis: 1. L5-S1 spondylolysis with Grade II-III spondylolisthesis 2. Neurogenic claudication 3. LE radiculopathy 4. LE weakness Postoperative Diagnosis: 1. L5-S1 spondylolysis with Grade II-III spondylolisthesis 2. Neurogenic claudication 3. LE radiculopathy 4. LE weakness Procedure(s) Performed: 1. Posterior midline approach to lumbosacral spine 2. Combined posteriolateral and interbody fusion L4-5 (23692) 3. Combined posteriolateral and interbody fusion L5-S1 (42747) 4. Intradiscal osteotomy for deformity correction and Spondylolisthesis reduction L5-S1 3 column osteotomy (69953) 5. Insertion of biomechanical device L4-5 and L5-S1 (84365m3) 6. Segmental instrumentation L4-S1 (07588) 7. L4-5 and L5-S1 extradural bilateral decompressive laminectomy, complete facetectomy and foraminotomy for decompression of nerves beyond that of disc space prep or simple decompression purposes. This prevented kinking with reduction of spondyolisthesis as well as decompressed severely compressed roots b/l L4-5 and L5-S1 freeing L5 roots for reduction preventing tethering. (08530, 91773) 8. Use of intraoperative neuromonitoring 9. Use of intraoperative [employer] 3D navigation for screw placement (63425) 10. Interpretation of intraoperative flouroscopic images <1 hr (80800) Implants: -[employer] [place] screw and miriam system -Globus sable cage x 1 6-12 mm 8 deg -Globus Rise cage 8-13 mm 10 deg -Local Autograft -Allograft -Magnatos -Dbm Anesthesia: GETA Surgeon: Librado Patton Pulp Press Tender #1: César Henderson (Was present and assisted in all aspects of the case from positioning to hardware placement closure and dressing placement) Estimated Blood Loss (ml): 550 IV fluids (ml): 2,300 Urine output (ml): 540 Pathology: none sent Condition: stable Disposition: PACU Indications for Procedure: 41 yo female who was followed and treated by the [facility] for some time now was found to have Grade II-III spondylolisthesis due to b/l L5 spondylolysis at L5- S1. This caused her severe debility, LE weakness, LE pain as well as difficulty with day to day activities. She went through a slew of conservative management including PT, HEP, Health maintinance programs, RX and OTC medications as well as injections all of which have failed to alleviate her sx at this time. She went through smoking cessation as well for 6 weeks pre op and has committed to at least 6-12 weeks post op of non smoking. We discussed all risks, benefits, potential outcomes as well as limitations of surgery. We discussed specifically weakness with L5 function after surgery due to tethering effects even with decompression and for that fact we discussed not trying to reduce this spondy back to perfect but instead to an acceptable position to allow for decompression, reorientation and shinto of height as well as lordosis within reasonable limits. She understands this. We also discussed risks with anesthesia up to including . She was willing to assume all these risks and the risks of surgery as outlined in risk review in her H&P done previously. She was seen preoperatively again and she was willing to proceed with surgery. Description of Procedure: The patient was seen and examined in the preoperative area. All preoperative protocols were followed. Informed consent was obtained risks and benefits of the procedure were discussed at length. Risks including bleeding infection damage to the surrounding tissue and risk of reoperation were discussed with the patient. Risk of anesthesia up to and including was a discussed with the patient. These are outlined in the risk review. They were willing to accept these risks and all of the risks of surgery. The patient was given a weight- based dose of antibiotics in the form of 2 g Ancef. The patient was seen and evaluated by the anesthesia team who deemed them fit for surgery. The site was marked, the patient was willing to proceed with the procedure. The patient was transferred to the operative suite by the Department of anesthesia. They were then drifted off to sleep by the department anesthesia and GETA was performed. The patient tolerated this well. Fajardo catheter was placed by nursing staff, atraumatically. Once confirmation of lines and ventilation the patient was transferred to a prone Simon table very carefully. All bony prominences including wrists, elbows, axilla, chest, hips, and thighs, and feet were padded very well. Special attention was paid to the genitalia and these were padded accordingly. SCDs were placed on bilateral lower extremities and were connected. Arms were well padded and placed on arm boards up and out in the 90/90 position. Once in position, again we confirmed good ventilation capabilities and that lines were running appropriately. The patient's lumbar spine was then exposed. 1010s were placed outlining the incision site. Standard alcohol was used to clean the incision site and allowed to dry. C-arm was used to biomark the patient and confirm level for incision which was marked with a skin marker. Operative briefing was performed with all teams and everyone in agreement to proceed. The patient was then prepped and draped in a normal sterile fashion. Timeout was then performed and all parties were in agreement with the procedure to be performed. Posterior midline skin incision was made over the previously bowel marked area and dissection taken down to the lumbar fascia which was identified and then cleaned with a Duque. Midline fasciotomy was then made and subperiosteal dissec tion taken over the lamina of L3 through S1 and S2. We identified the facet joints at L4 5 and L5-S1 anterior dissection out over the transverse processes and cleaned these. These were then decorticated with a high-speed bur as they were easily visualized at this time. Once we had our exposure we confirmed levels on lateral fluoroscopic imaging we then proceeded with hardware placement. Pedicle screws were placed using [employer] 3 navigation. A spinous processes clamp was placed on S2 and a 3-D intraoperative C-arm spent was obtained. We then used the navigation for placement of screws at L4-L5 and S1 using a navigated bur to create a pilot captain hole followed by a navigated all tapped followed by the sized and selected screw for that level. Screws were placed bilaterally at L4 5 and S1. Due to her anatomy and the way that S1 and S2 were arranged and her S1 foramen we forewent the S2 screws at this time as they were likely unsafe to place and we had not planned on securing her to pelvis at this time. We did get excellent purchase and to S1 screws and were able to place large screws in this area. All screws were then tested and tested above 20 mA. We then took fluoroscopic imaging in the AP and lateral and confirmed that the screws are in good position. We then proceeded with decompression osteotomy at L5-S1 for spondylolisthesis correction. Bilateral laminectomy complete F acetectomy and foraminotomy was prepared at L5-S1 using high-speed bur and Kerrison rongeurs rongeur was used to remove spinous processes followed by high- speed bur. Partial cuts were made which were made through exuberant scar tissue in this area using Kerrison Ronjair as well as some high-speed bur as there are some bony portion still attached. Once these cuts remade the IP's were removed completely. We then performed a W cut into the S1 region coming across the superior articular facet of S1 bilaterally and the lamina to open up this area and extradural laminotomy fashion once this was accomplished we identified the disc space bilaterally using meticulous hemostasis and careful dissection with a [place] 4 to mobilize the thecal sac as well as the exiting and traversing nerve roots. Once these were mobilized and the disc space was accessible we performed an intradiscal osteotomy using 1/4 in osteotome for intradiscal three column osteotomy for deformity correction. This was passed into the disc space into the anterior two thirds of the vertebral body and disc space bilaterally. Done under lateral fluoroscopic guidance. Once this was accomplished allowed us to perform complete discectomy in this area which allowed for further mobilization of the segment. We then removed further the disc with trisha sequentially until the desired height was obtained as well as reduction of lordosis and height. Once this was accomplished and the screw in needle loom weaver was placed anteriorly within the disc space on one side and opened up to allow for opening we then placed a temporary miriam and this was secured into L5 and S1 which allowed for reduction as well as maintenance of height. We then sized and selected a cage using blunt instruments and trials. Once this was selected auto graft allograft and DBM were placed anterior to the cage in the disc space ensuring that there were good bleeding endplates and complete discectomy performed. We then impacted this into position. We then selected a cage and while protecting the nerve roots impacted into position we confirmed to be in good position on AP. We then expanded the cage which allowed for good height shinto as well as lordosis and listhesis reduction. Once the cage was expanded we tested it and it was stable. [employer]er was removed and we backfilled the cage and DBM. We then performed meticulous hemostasis in this area and irrigated the space. We then turned our attention to L4-L5. Bilateral laminectomy complete facetectomy and foraminotomies were performed at L4-L5 this allowed for access to the foramen as well as decompression of extradural elements nerve roots traversing and exiting as well as visualization. There is exuberant ligamentous tissue between L4 and L5 which was removed. So allowed f or extra decompression and this area then was originally needed or thought to be needed due to the stenosis that was here. There was overgrowth of facets specifically in the lateral recess. Ligamentous material was removed from this area as well as the SAP of L5. This allowed for pedicle to pedicle decompression as well as complete decompression roots in this area. This also allowed for decreased kinking of the cord with the reduction. We are then able to identify and access the disc space at L4-L5 while protecting neural elements after mobilization and meticulous hemostasis we are able to axis the disc space under lateral fluoroscopic guidance sequential shaving was performed until we reached a good height as well as good bleeding endplates down biting curette was used to extend this across midline as well as perform complete discectomy pituitary rongeur used to remove any excess disc. We then ensured good bleeding endplates and used a blunt sizer to size for a cage once we obtain the adequate size and reduction we scraped the endplates once again to remove any further cartilage and this was removed. We then irrigated this space thoroughly. We then placed autograft allograft and DBM anterior within the disc space impacted into position. Then while protecting neural elements completely we selected a cage and impacted into position under lateral fluoroscopic guidance and was confirmed to be centered on AP. We then expanded the cage and once the cage was expanded to desired height and lordosis we tested it and it was stable. We then back filled the cage with DBM. Aut[employer] Electrical Designer was removed cage was again tested and it was stable. We then selected and sized a miriam for the opposite side of the temporary miriam which fit the entire construct this was then placed first into S1 and secured into position we then reduced it into L5 and L4 sequentially. Once it became to the level of the previous reduction of the temporary rather temporary miriam was removed and a final miriam was selected for this side and placed in the S1 and secured we then sequentially reduced bilaterally into L5 and L4 which allowed for listhesis reduction height shinto as well as lordosis reduction. Once the reduction was complete under lateral fluoroscopic guidance we placed set screws and all of these areas and final tightened them in the position. We then sized and selected a cross-link and this was placed and final tightened. We confirmed on AP and lateral good placement of hardware as well as excellent reduction of listhesis restrictor shinto of height and lordosis. This also confirmed good decompression. We then performed meticulous hemostasis we then irrigated copiously with 3 L of antibiotic saline solution followed by 6 L of normal sterile saline. We then placed Surgicel over the dura. We then placed a mixture of Autograft, magnatos, allograft and DBM in the posterior lateral gutters bilaterally impacted into position. A deep drain was placed and sewn into position vancomycin 2 g powder was placed within the wound. We then proceeded with layered closure first and the fascia with #1 PDS in [id number] fashion followed by 0 PDS in simple fashion deep subcu tissues closed with 0 PDS superficial subcu tissue closed with 2-0 PDS and skin closed with skin rudy. The wound edges approximated very well. The wound was then cleaned and dressed sterilely with operative foam dressing 4 x 4 and Tegaderm. The patient was transferred back to their hospital bed atraumatically. Drain continued to hold suction and were in good position. Patient was then awakened and extubated by the department of anesthesia having tolerated the procedure very well with no complications. They were transferred to the postoperative care unit in stable condition.
== END 2022-03-21 14:14 | disposition home health service (06) | DRG 460 ==
LOC: 2ORMAIN 08:22 → 4SSUR 17:16
PROVIDERS: ADMIT Orthopaedic Surgery; ATTEND Orthopaedic Surgery
PROC: 0SG30AJ Fusion of Lumbosacral Joint with Interbody Fusion Device, Posterior Approach, Anterior Column, Open Approach (ICD-10-PCS; 2022-03-19)
PROC: 01NB0ZZ Release Lumbar Nerve, Open Approach (ICD-10-PCS; 2022-03-19)
PROC: 0ST20ZZ Resection of Lumbar Vertebral Disc, Open Approach (ICD-10-PCS; 2022-03-19)
PROC: 4A11X4G Monitoring of Peripheral Nervous Electrical Activity, Intraoperative, External Approach (ICD-10-PCS; 2022-03-19)
PROC: 0SG00AJ Fusion of Lumbar Vertebral Joint with Interbody Fusion Device, Posterior Approach, Anterior Column, Open Approach (ICD-10-PCS; principal; 2022-03-19 10:25)
DX: M43.17 Spondylolisthesis, lumbosacral region (principal); M47.27 Other spondylosis with radiculopathy, lumbosacral region; E66.9 Obesity, unspecified; E78.5 Hyperlipidemia, unspecified; J30.2 Other seasonal allergic rhinitis; K21.9 Gastro-esophageal reflux disease without esophagitis; Z88.6 Allergy status to analgesic agent; Z68.33 Body mass index [BMI] 33.0-33.9, adult; Z79.899 Other long term (current) drug therapy; Z87.891 Personal history of nicotine dependence; Z98.891 History of uterine scar from previous surgery; Z91.030 Bee allergy status; Z82.62 Family history of osteoporosis
CPT/HCPCS: 71045; 72100; 72131; 80048; 81025; 85025; 85027

== ENCOUNTER → 2023-08-24 | Outpatient (CLI) | payer BC, OTHER ==
--- NOTE | 2023-08-25 08:51 | MM ---
Reason for Exam: Screening (asymptomatic). Baseline mammogram. Patient History: Menarche at age 16. First Full-Term at age 32. Late child-bearing (after 32). Premenopausal. Patient has history of breast feeding. Last menstrual period: 08/10/2023 Risk Values: Meg 5 year model risk: 0.8%. NCI Lifetime model risk: 12.4%. Prior Study Comparison: Patient's first Mammogram. Tissue Density: The breast tissue is almost entirely fat. Findings: Analyzed By CAD. There is no suspicious group of microcalcifications or new suspicious mass. Overall Assessment: Negative, BI-RAD 1 Management: Screening Mammogram of both breasts in [address] [facility] will attempt to contact patient to return for supplemental views and ultrasound if indicated. Patient should continue monthly self-breast exams. A clinical breast exam by your physician is recommended on an annual basis. This exam should not preclude additional follow-up of suspicious palpable abnormalities. Note on Meg scores and lifetime risk: 1. A Meg score greater than 3% is considered moderate risk. If this is the case, consider specialist referral to assess eligibility for a risk reducing agent. 2. If overall lifetime risk for the development of breast cancer is 20% or higher, the patient may qualify for future screening with alternating mammogram and breast MRI. Electronically signed and approved by: Valentin Mitchell DO
== END | disposition home or self-care (01) ==
LOC: RADMAMWWP 08:17
PROVIDERS: ATTEND Internal Medicine
DX: Z12.31 Encounter for screening mammogram for malignant neoplasm of breast (principal)
CPT/HCPCS: 77063; 77067

== ENCOUNTER → 2024-04-24 | Outpatient (CLI) | payer BC ==
--- NOTE | 2024-04-25 07:23 | XR ---
EXAMINATION TYPE: XR pelvis AP view DATE OF EXAM: 04/24/2024 CLINICAL HISTORY: pain TECHNIQUE: Single view the pelvis is submitted. FINDINGS: No evidence for fracture, dislocation or bony lesion. Joint spaces are well-preserved. S I joints appear symmetric. Postoperative changes of the lumbar spine. IMPRESSION: 1. No acute fracture or dislocation seen. ICD 10 NO FRACTURE, INITIAL EVALUATION
--- NOTE | 2024-04-25 07:33 | XR ---
EXAMINATION TYPE: XR lumbar spine 2 or 3V DATE OF EXAM: 04/24/2024 CLINICAL HISTORY: pain TECHNIQUE: Three views of the lumbar spine are submitted. COMPARISON: 09/10/2021 FINDINGS: Dural changes of lumbar fusion and laminectomy L4-5 and L5-S1. Grade 2 anterolisthesis of L5 on S1 of approximately 1.3 cm. mild degenerative narrowing at L3-4. No compression fractures evident. IMPRESSION: Interval postoperative changes with grade 2 anterolisthesis L5 on S1.
== END | disposition home or self-care (01) ==
LOC: RADXRMAIN 14:40
PROVIDERS: ATTEND Orthopaedic Surgery
DX: M43.17 Spondylolisthesis, lumbosacral region (principal); Z98.890 Other specified postprocedural states
CPT/HCPCS: 72100; 72170

== ENCOUNTER → 2025-01-09 | Outpatient (CLI) | payer BC ==
[2025-01-09 16:06] VITALS: BP 109/80; PULSE 84; RESP 16; TEMP 98.2
--- NOTE | 2025-01-09 16:53 | P.SLEEP ---
History of Present Illness H&P Date: 01/09/25 Chief Complaint: Sleep apnea This is a pleasant 45-year-old female patient is coming in due to concerns of sleep apnea. The patient was recently seen by ENT regarding her loud snoring. She was found to have nasal septal deviation and she was asked to come into the sleep center to have another sleep evaluation regarding the possibility of her having obstructive sleep apnea. Noted the patient was studied in the past through [facility] and the patient was found to have mild CASTILLO back in 2016 and her AHI was 6. She was given a CPAP unit which was an APAP machine set at a pressure of 15/20 cm of water. She was using the machine for quite some time and she saw me in the office back in 2019 and based on the mild nature of her disease, the treatment was discontinued. Over the past 5 years, her condition seems to have gotten worse and the patient continues to snore very loudly and she is also experiencing increased fatigue and sleepiness during the day. The current [place] score is at 14. Noted, the patient has not gained significant amount of weight over the past 5 years. The current body mass index is 31.1. She has going to bed at 11 PM and waking up 6 AM in the morning. She is feeling excessively fatigued and sleepy and not refreshed during the day. She is a mouth breather and she is waking up with a dry mouth. Her sleep is also fragmented and she wakes up at least 3 times in the middle of the night and on 1 occasion she has to go and urinate. She sleeps on her side. No sleep paralysis. No hallucinations. No cataplexy. No cardiovascular disease. No anxiety. No depression. The patient is coming in for further advice. She is a former smoker. She occasionally vapes. No alcohol consumption. No substance abuse. No head trauma. Review of Systems Constitutional: Reports daytime sleepiness, Reports fatigue Eyes: denies as per HPI, denies blurred vision, denies bulging eye, denies decreased vision, denies diplopia, denies discharge, denies dry eye, denies irr itation, denies itching, denies pain, denies photophobia, denies loss of peripheral vision, denies loss of vision, denies tunnel vision/blind spots Ears: deny: decreased hearing, ear discharge, earache, tinnitus Ears, nose, mouth and throat: Reports as per HPI Breasts: absent: as per HPI, change in shape, gynecomastia, masses, nipple discharge, pain, skin changes, swelling Cardiovascular: Reports as per HPI Respiratory: Reports snoring Gastrointestinal: Reports as per HPI Genitourinary: Reports as per HPI Menstruation: Reports as per HPI Musculoskeletal: Reports as per HPI Musculoskeletal: absent: ankle pain, ankle stiffness, ankle swelling, as per HPI, elbow pain, elbow stiffness, elbow swelling, foot pain, foot stiffness, foot swelling, hand pain, hand stiffness, hand swelling, hip pain, hip stiffness, hip swelling, knee pain, knee stiffness, knee swelling, shoulder pain, shoulder stiffness, shoulder swelling, wrist pain, wrist stiffness, wrist swelling Integumentary: Reports as per HPI Neurological: Reports as per HPI Psychiatric: Reports change in sleep habits, Reports hypersomnia, Reports sleep disturbances Endocrine: Reports fatigue, Reports nocturia Past Medical History Past Medical History: GERD/Reflux, Sleep Apnea/CPAP/BIPAP Additional Past Medical History / Comment(s): PAST LT OVARIAN CYST. NO LONGER USES C-PAP. SEASONAL ALLERGIES History of Any Multi-Drug Resistant Organisms: None Reported Past Surgical History: Section, Tonsillectomy Additional Past Surgical History / Comment(s): X3 C-SECTIONS Past Anesthesia/Blood Transfusion Reactions: No Reported Reaction Additional Past Anesthesia/Blood Transfusion Reaction / Comment(s): AGE 16 HAD BLOOD TRANSFUSION D/T BLEEDING DURING TONSILECTOMY Past Psychological History: Depression Additional Psychological History / Comment(s): AT TIME OF THIS ADMIT PT DENIES ANY PROBLEM WITH DEPRESSION Smoking Status: Former smoker Past Alcohol Use History: None Reported Additional Past Alcohol Use History / Comment(s): QUIT SMOKING 6 WEEKS AGO- STARTED SMOKING AT AGE 16 AND SMOKED 5 CIG PER DAY Past Drug Use History: None Reported - Past Family History Father History Unknown: Yes Mother Family Medical History: COPD, Hyperlipidemia, Osteoarthritis (OA), Pneumonia, Sleep Apnea/CPAP/BIPAP Additional Family Medical History / Comment(s): ENPHYSEMA, OSTEOPOROSIS, sinus headaches Medications and Allergies Home Medications Medication Instructions Recorded Confirmed Type Ascorbic Acid [Vitamin C] 2,000 mg PO DAILY 03/13/22 01/09/25 History Atorvastatin [Lipitor] 10 mg PO HS 03/13/22 03/19/22 History Calcium Carbonate [Calcium] 600 mg PO DAILY 03/13/22 01/09/25 History Cholecalciferol (Vitamin D3) 125 mcg PO DAILY 03/13/22 01/09/25 History [Vitamin D3 (125 MCG = 5,000 IU)] DULoxetine HCL [Cymbalta] 30 mg PO BID 03/13/22 03/19/22 History Gabapentin [Neurontin] 100 mg PO TID 03/13/22 03/19/22 History Montelukast [Singulair] 10 mg PO HS 03/13/22 03/19/22 History Cyclobenzaprine [Flexeril] 10 mg PO TID #28 tab 03/21/22 01/09/25 Rx Gabapentin [Neurontin] 300 mg PO TID #36 cap 03/21/22 Rx HYDROcodone/APAP 7.5-325MG [[place] 1 - 2 each PO Q6HR PRN #42 tab 03/21/22 Rx 7.5] Sennosides/Docusate Sodium [Senna 1 each PO DAILY #20 cap 03/21/22 Rx Plus 8.6-50 mg Softgel] cefaDROXiL [Duricef] 500 mg PO Q12HR 5 Days #10 cap 03/21/22 Rx Multivit-Min/Iron Fum/Folic AC See Rx Instructions .ROUTE .COMPLEX 01/09/25 01/09/25 History [One-A-Day Women's Complete Tab] Allergies Allergy/AdvReac Type Severity Reaction Status Date / Time aspirin AdvReac WAS TOLD Verified 03/19/22 09:06 NOT TO TAKE R/T BLEEDS EASY bee venom protein (honey bee) AdvReac Swelling Verified 03/19/22 09:06 Physical Exam Vitals: Vital Signs Temp Pulse Resp BP Pulse Ox 01/09/25 16:04 98.2 F 84 16 109/80 95 Intake and Output 01/09/25 01/09/25 01/09/25 06:59 14:59 22:59 Other: Weight 87.543 kg The patient appeared well nourished and normally developed. Vital signs as documented. The patient is a body mass index of 31.2. Head exam is unremarkable. No scleral icterus or corneal arcus noted. Neck is without jugular venous distension, thyromegaly, or carotid bruits. Carotid upstrokes are brisk bilaterally. Nasal septal deviation to the left. Mallampati class IV. Lungs are clear to auscultation and percussion. Cardiac exam reveals the PMI to be normally sized and situated. Rhythm is regular. First and second heart sounds normal. No murmurs, rubs or gallops. Abdominal exam reveals normal bowel sounds, no masses, no organomegaly and no aortic enlargement. Extremities are nonedematous and both femoral and pedal pulses are normal. Examination of the skin revealed no evidence of significant rashes, suspicious appearing nevi or other concerning lesions. Neurologically, the patient is awake and alert and the patient does not have any focal neurological deficit. Cranial nerves are essentially intact. Assessment and Plan Plan: Obstructive sleep apnea, diagnosed back in 2017 and based on a home sleep study that was done at [facility] she had an AHI of 6. The patient was treated with an APAP machine and over the years, she quit her treatment and she has not utilized the machine for the past 5 years. Patient is presenting with increased fatigue and sleepiness and her current [place] score is at 14. In addition, she has a very loud snore as reported by family members. Loud snoring Nasal septal deviation to the left Chronic back pain and the patient has undergone previous lumbar spine surgery. Plan The patient will need a reevaluation. I am recommending a home sleep study to evaluate the presence and severity of sleep apnea. Based on the findings, we will make further recommendations. The patient is interested in going back on CPAP therapy should diagnosis of sleep apnea is confirmed. Will make further recommendations based on the results of the sleep study. Encourage weight loss. Sleep on the side. Follow-up with ENT regarding nasal septal deviation. Sleep Note - Sleep Data ESS Total: 14 - Sleep Note Sleep Note: Temperature: 98.2 F Pulse Rate: 84 Respiratory Rate: 16 Blood Pressure: 109/80 SpO2: 95 Height: 5 ft 6 in Weight: 87.543 kg BMI: Neck Circumference: 14.5
== END ==
LOC: 3 N SLEEP 15:20
PROVIDERS: ATTEND Internal Medicine Critical Care Medicine
DX: G47.33 Obstructive sleep apnea (adult) (pediatric) (principal); J34.2 Deviated nasal septum; M54.9 Dorsalgia, unspecified; G89.29 Other chronic pain; F17.200 Nicotine dependence, unspecified, uncomplicated; Z91.030 Bee allergy status; Z88.6 Allergy status to analgesic agent
CPT/HCPCS: 99212

== ENCOUNTER → 2025-01-23 | Outpatient (CLI) | payer BC ==
--- NOTE | 2025-01-29 21:33 | P.PCN ---
Date of Procedure: 01/23/25 Operative Findings: Home sleep study testing History This is a pleasant 45-year-old female patient is coming in due to concerns of sleep apnea. The patient was recently seen by ENT regarding her loud snoring. She was found to have nasal septal deviation and she was asked to come into the sleep center to have another sleep evaluation regarding the possibility of her having obstructive sleep apnea. Noted the patient was studied in the past through [facility] and the patient was found to have mild CASTILLO back in 2017 and her AHI was 6. She was given a CPAP unit which was an APAP machine set at a pressure of 15/20 cm of water. She was using the machine for quite some time and she saw me in the office back in 2019 and based on the mild nature of her disease, the treatment was discontinued. Over the past 5 years, her condition seems to have gotten worse and the patient continues to snore very loudly and she is also experiencing increased fatigue and sleepiness during the day. The current [place] score is at 14. Noted, the patient has not gained significant amount of weight over the past 5 years. The current body mass index is 31.1. She has going to bed at 11 PM and waking up 6 AM in the morning. She is feeling excessively fatigued and sleepy and not refreshed during the day. She is a mouth breather and she is waking up with a dry mouth. Her sleep is also fragmented and she wakes up at least 3 times in the middle of the night and on 1 occasion she has to go and urinate. She sleeps on her side. No sleep paralysis. No hallucinations. No cataplexy. No cardiovascular disease. No anxiety. No depression. The patient is coming in for further advice. She is a former smoker. She occasionally vapes. No alcohol consumption. No substance abuse. No head trauma. Based on that, the patient was offered a home sleep study Pertinent physical findings The patient has a body mass index of 31.3. Weight is 193 pounds, height is 5 feet and 6 inches, [place] score is at 14 Technical description [employer] Ap[employer] system was used to complete his home sleep study. This is a type III home sleep study evaluation. The total recording duration was 7 hours and 40 minutes. The study started at 9:06 PM and ended at 4:21 AM. There was a total of 7 hours and 2 minutes of flow monitoring and 7 hours and 3 minutes of oxygen saturation monitoring. Results Respiratory analysis showed a total of 16 obstructive apneas and 39 obstructive hypopneas. AHI was calculated to be at 7.8. Slightly worse in the supine body position. Oxygenation analysis the Baseline pulse ox while awake was 97%. Average pulse ox during sleep was 93% and the lowest pulse ox was 79% and the patient had approximately 8 minutes of the sleep time below pulse ox of 89% Cardiac summary The average heart rate was 76 with a minimum heart rate of 60 and a maximum heart rate of 104 Assessment Mild obstructive sleep apnea with an AHI of 7.8, slightly worsening supine body position. No significant worsening in the severity of sleep apnea compared to her previous sleep study that was done back in 2017. Back in 2017, the patient had an AHI of 6. She was treated with CPAP therapy and she quit the treatment more than 5 years ago. Patient is presenting with increased fatigue and sleepiness and her current [place] score is at 14. In addition, she has a very loud snore as reported by family members. Loud snoring Nasal septal deviation to the left Chronic back pain and the patient has undergone previous lumbar spine surgery. Plan The patient has mild obstructive sleep apnea. AHI was 7.8. The patient is interested in going back on CPAP therapy should diagnosis of sleep apnea is confirmed. Encourage weight loss. Sleep on the side. Follow-up with ENT regarding nasal septal deviation. Will offer the patient CPAP therapy if she continues to be interested in undertaking the treatment. Will have further discussion with the patient. Will offer the patient an APAP machine pressures at 5/10 cm of water if she wants to pursue treatment.
== END ==
LOC: 3 N SLEEP 16:49
PROVIDERS: ATTEND Internal Medicine Critical Care Medicine
DX: G47.33 Obstructive sleep apnea (adult) (pediatric) (principal); J34.2 Deviated nasal septum; G89.29 Other chronic pain; M54.9 Dorsalgia, unspecified; F17.200 Nicotine dependence, unspecified, uncomplicated; Z88.6 Allergy status to analgesic agent; Z91.030 Bee allergy status